=== PATIENT | female | born 1975 | race Caucasian/White ===

== ENCOUNTER 2019-10-13 09:29 | Outpatient (CLI) | payer BC, SELFPAY ==
--- NOTE | ~2019-10-13 | MM_ITS ---
EXAMINATION: MM screening malinda BI w vladislav HISTORY: Screening mammogram TECHNIQUE: Craniocaudal and mediolateral oblique 3-D tomosynthesis images were obtained and synthetic 2-D images were generated. CAD analysis was submitted and interpreted. COMPARISON: 08/04/2018 bilateral digital screening mammogram BREAST PARENCHYMAL COMPOSITION: There are scattered areas of fibroglandular density. FINDINGS: There is no evidence of suspicious mass, calcification, or architectural distortion to sugg est malignancy in either breast. There has been no suspicious interval change. IMPRESSION: 1. No mammographic evidence of malignancy. 2. Recommend routine screening mammography in one year. BI-RADS Category 1: Negative Reviewed, dictated and finalized at location A.
== END 2019-10-13 09:30 | disposition home or self-care (01) ==
LOC: ANHIMG 09:32
PROVIDERS: PCP Internal Medicine; Visit Provider Internal Medicine
DX: Z12.31 Encounter for screening mammogram for malignant neoplasm of breast (principal)
CPT/HCPCS: 77063; 77067

== ENCOUNTER 2021-05-07 08:07 | Outpatient (CLI) | payer BC, SELFPAY ==
--- NOTE | ~2021-05-07 | MM_ITS ---
EXAMINATION: MM screening malinda BI w vladislav HISTORY: Screening mammogram TECHNIQUE: Craniocaudal and mediolateral oblique 3-D tomosynthesis images were obtained and synthetic 2-D images were generated. CAD analysis was submitted and interpreted. COMPARISON: 10/13/2019, 08/04/2018 BREAST PARENCHYMAL COMPOSITION: There are scattered areas of fibroglandular density. FINDINGS: RIGHT BREAST: A mass is present in the anterior third of the lower inner breast 4.8 cm from the nippl e. LEFT BREAST: There is no evidence of suspicious mass, calcification, or architectural distortion to s uggest malignancy. There has been no significant interval change. IMPRESSION: 1. Right breast mass. 2. Additional mammographic views and possible breast ultrasound are recommended. BI-RADS Category 0: Incomplete: Needs additional imaging evaluation. Reviewed, dictated and finalized at location A. MACHINE OPERATOR IMPRESSION: 1. Right breast mass. 2. Additional mammographic views and possible breast ultrasound are recommended . BI-RADS Category 0: Incomplete: Needs additional imaging evaluation.
== END 2021-05-07 08:08 | disposition home or self-care (01) ==
LOC: ANHIMG 08:10
PROVIDERS: PCP Internal Medicine; Visit Provider Advanced Practice Midwife
DX: Z12.31 Encounter for screening mammogram for malignant neoplasm of breast (principal); R92.8 Other abnormal and inconclusive findings on diagnostic imaging of breast
CPT/HCPCS: 77063; 77067

== ENCOUNTER 2021-05-26 13:49 | Outpatient (CLI) | payer BC, SELFPAY ==
--- NOTE | ~2021-05-26 | MMUS_ITS ---
EXAMINATION: MM diagnostic malinda RT w vladislav, US breast RT limited HISTORY: Right breast mass on screening mammogram TECHNIQUE: Additional 3-D tomosynthesis images of the right breast were performed and synthetic 2-D i mages were generated. CAD analysis was submitted and interpreted. High resolution limited right breas t ultrasound was performed. COMPARISON: 05/07/2021, 10/13/2019, 08/04/2018 FINDINGS: MAMMOGRAPHIC FINDINGS: There is an 11 mm x 8 mm irregular mass with obscured margins in the middle third of the inner breast at the 3:00 location 5 cm from the nipple. No suspicious calcification or architectural distortion a re identified. ULTRASOUND: There is an 11 mm by 8mm, circumscribed, parallel, hypoechoic mass with posterior acoustic enhancemen t and no internal vascularity at the 4:00 location 4 cm from the nipple. IMPRESSION: 1. Indeterminate right breast mass. 2. Ultrasound-guided biopsy is recommended. BI-RADS category 4, suspicious findings. Reviewed, dictated and finalized at location A. L GAUGER IMPRESSION: 1. Indeterminate right breast mass. 2. Ultrasound-guided biopsy is recommended. BI-RADS category 4, suspicious findings.
== END 2021-05-26 13:50 | disposition home or self-care (01) ==
LOC: ANHIMG 13:51
PROVIDERS: PCP Internal Medicine; Visit Provider Advanced Practice Midwife
DX: R92.8 Other abnormal and inconclusive findings on diagnostic imaging of breast (principal)
CPT/HCPCS: 76642; 77061; 77065; G0279

== ENCOUNTER 2022-07-17 08:16 | Emergency (ER) | payer BC, SELFPAY ==
[2022-07-17 08:28] VITALS: BP 156/92; PULSE 83; RESP 16; TEMP 37; O2SAT 100
--- NOTE | 2022-07-17 09:06 | ED.URI ---
HPI - URI/Sore Throat General Chief Complaint: Upper Respiratory Infection Stated Complaint: cold symptoms Time Seen by Provider: 07/17/22 08:45 Source: patient, RN notes reviewed and old records reviewed Mode of arrival: ambulatory Limitations: no limitations History of Present Illness HPI Narrative: 47 year old female who presents to [facility] with complaints of battling allergy symptoms for one week duration. Patient reports that she has season allergies and uses antihistamines daily and has used Flonase in the past. Patient reports that she is traveling out of state to take care of grandmother and wants to make sure she doesn't have anything else going on. Patient reports that her drainage has recently turned to greenish tinged, had been clear, denies any fevers, chills or sweats, denies any cough or any sore throat or ear pain or any headache pain. Patient reports some sinus pressure.. MD elicited complaint: rhinorrhea, nasal congestion and sinus pain Pertinent past history: sinusitis and seasonal allergies Onset (ago): week(s) (1) Pain scale (0-10): 3 Able to tolerate fluids by mouth: Yes Treatments prior to arrival[facility] Related Data Home Medications Medication Instructions Recorded Confirmed bupropion HCl 150 mg 24 hr tablet, 150 mg PO DAILY 07/17/22 07/17/22 extended release lamotrigine 150 mg tablet 150 mg PO DAILY 07/17/22 07/17/22 methylphenidate HCl 36 mg 36 mg PO DAILY 07/17/22 07/17/22 tablet,extended release 24 hr sertraline 100 mg tablet 100 mg PO DAILY 07/17/22 07/17/22 trazodone 50 mg tablet 50 mg PO DAILY 07/17/22 07/17/22 Allergies Allergy/AdvReac Type Severity Reaction Status Date / Time poison alexander extract Allergy Unknown Rash Verified 07/17/22 08:34 Review of Systems Review of Systems: CONSTITUTIONAL: Denies malaise, chills, sweats, or fever. EYES: Denies visual changes, redness, or discharge. ENT: Reports rhinorrhea, congestion, sinus pain, no otalgia and no sore throat. CARDIOVASCULAR: Denies chest pain, palpitations, or edema. RESPIRATORY: Reports no cough.? Denies dyspnea. GASTROINTESTINAL: Denies abdominal pain, nausea, vomiting, diarrhea SKIN: Denies rash or itching. MUSCULOSKELETAL: Denies myalgia. NEUROLOGIC: Denies headache. All systems reviewed & are unremarkable except as noted in HPI and below PMFSH Past Medical History Medical History (Updated 07/18/22 @ 15:21 by Brenda Gooden NP) ADHD (attention deficit hyperactivity disorder) Anxiety and depression Bipolar 1 disorder, mixed Hypertension Social History Social History Smoking status: Never smoker Alcohol intake: current Alcohol use details: rare Substance use type: does not use Living arrangements: with family Gender identity (if verbalized by the patient): Female Comments At time of signature, agree with nursing past medical, surgical, social and family history. There is no relevant family history pertinent to the presenting complaint Exam Narrative: GENERAL: Well-appearing, well-nourished, and in no acute distress. HEAD: Normocephalic EYES: PERRLA, conjunctivae clear ENT: Nares clear, turbinates edematous and erythematous, clear to light yellow discharge noted. Mucous membranes moist. TM pearly lopez with dull light reflex bilaterally; no tragal tenderness. Oropharynx erythematous without lesions. Tonsils not enlarged and without exudate, no drooling, no hoarseness, no trismus, uvula midline.post nasal drainage noted NECK: Supple. No lymphadenopathy CHEST: Clear to auscultation, breath sounds equal. No wheezing, rhonchi, rales, or stridor. No respiratory distress, speaks in full sentences.no cough noted SAO2 100% on room air HEART: Regular rate and rhythm. No murmur heard. SKIN: Warm, dry, no rash. NEURO: Alert and oriented x3. PSYCH: Normal mood and affect Course Course Emergency Course:
== END 2022-07-17 09:16 | disposition home or self-care (01) ==
PROVIDERS: Emergency Provider Registered Nurse; PCP Internal Medicine
DX: J06.9 Acute upper respiratory infection, unspecified (principal); I10 Essential (primary) hypertension; F90.9 Attention-deficit hyperactivity disorder, unspecified type; F41.9 Anxiety disorder, unspecified; F31.9 Bipolar disorder, unspecified
CPT/HCPCS: 99213; G0463

== ENCOUNTER 2025-02-01 08:30 | Emergency (ER) | payer BC, SELFPAY ==
--- OUTSIDE RECORDS SUMMARY | 2018-08-03 23:00 | XMS_ITS | Encounter Summary ---
Author Organization [facility] Healthcare Address [address] [place] [address] Care Team Providers Care Rock Mason Name Role Phone Bryan Mix MD Primary Care Provider [phone] Reason for Visit * Diagnostic Imaging (Routine) - Closed Specialty Diagnoses / Procedures Referred By Dorothy blum Referred To Contact Procedures Breast Imaging Screening Outside Reference Dorota Shafer MD PhD Phone: tel: fax: Referral ID Status Reason Start Date Expiration Date Visits Re quested Visits Authorized [id number] Closed 06/13/2021 07/13/2022 1 1 Encounter Details Date Type Department Care Team (Late st Contact Info) Description 08/04/2018 Hospital Encounter [facility] [address] [place] [id number] Social History Tobacco Use Types Packs/Day Years Used Date Smoking Tobacco: Never Smokeless Tobacco: Never AUDIT-C Answer Date Recorded Q1: How often do you have a drink containing alc ohol? Monthly or less 07/20/2024 Q2: How many drinks containi ng alcohol do you have on a typical day when you are drinking? 1 or 2 07/20/2024 Q3: How often do you have si x or more drinks on one occasion? Less than monthly 07/20/2024 Personal Safety Answer Date Recorded Have you ever been in or are you currently in a harmful physical or emotional relationship or is someone making you feel afraid or unsafe? 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 Gender Identity Not on file Sexual Orientation Not on file documented as of this encounter Functional Status * Difference in Last Two Chepe Scores Answer Date of Assessment Author 1 06/19/2024 7:50 AM CDT Rhiannon Martinez RN * Question Answer Date of Assessment Author Auto Low/High - if selected proceed to interventions (retired) Low risk-patient immobile/non-ambula tory or infant 08/20/2021 12:54 PM CDT Memo Alcazar RN Patel Fall Risk Score (Score >= 45 places fall precaution order) 20 09/14/2024 12:00 PM CDT Daphnie Galo RN Prior Fall Event (Autopopulated from EMR) None found 09/14/2024 12:00 PM CDT Daphnie Galo RN * BP Location Answer Date of Assessment Author Right arm 07/21/2024 11:57 AM CDT Tammy Arnold MA * Question Answer Date of Assessment Author BP Method Automatic 06/19/2024 3:08 PM DIYAT Elmira Bird MAP (mmHg) 77 06/19/2024 3:08 PM CDT Elmira Bird * Fall Risk Interventions Question Answer Date of Assessment Author All Low Fall Interventions Applied Yes 06/19/2024 7:50 AM CDT Rhiannon Martinez RN All Moderate Fall Interventions Applied No 06/19/2024 7:50 AM CDT Rhiannon Martinez RN All Moderate Fall Risk Interventions EXCEPT: Fall risk sign with education 06/18/2024 2:00 PM CDT Shanika Patel RN All High Fall Risk Interventions Applied No 06/18/2024 8:00 PM CDT Jemima Sibley RN All High Risk Interventions EXCEPT: Bed alarm;Chair alarm;Fall risk sign with education 06/18/2024 8:00 PM DIYAT Jemima Sibley, BREANA Reason For Exception(s) Pt A&O x4, aware of abilties and limitations, BMAT green 06/18/2024 8:00 PM CDT Jemima Sibley RN * B.M.A.T. - Bedside Mobility Assessment Tool for Nurses Question Answer Date of Assessment Author Is patient able to participate in the BMAT? Yes 06/19/2024 7:50 AM CDT Teo Martinez RN BMAT Level Level 4 - Green 06/19/2024 7:50 AM CDT Rhiannon Medley, BREANA * Question Answer Date of Assessment Author 1. Has the patient self-repo rted, presented with clinical signs of, or have a documented history of any of the following within the past 30 days? No 06/18/2024 2:00 PM CDT Shanika Patel RN * Question Answer Date of Assessment Author Is the patient being treated today because it is known or suspected that they prepared, started, or tried to end their life? No 06/18/2024 2:00 PM DIYAT Shanika Patel RN * Question Answer Date of Assessment Author 1. In the past month, have y ou wished you were or that you could go to sleep and not wake up? No 06/18/2024 2:00 PM Shanika Ortiz RN 2. In the past month, have y ou actually had any thoughts of killing yourself? No 06/18/2024 2:00 PM DIYAT Shanika Patel RN 6. Have you ever done anythi ng, started to do anything, or prepared to do anything to end your life? No 06/18/2024 2:00 PM Shanika Ortiz RN * Suicide Risk Level Answer Date of Assessment Author No risk level 06/18/2024 2:00 PM DIYAT Haley Patel RN * Self-Injurious Risk Level Answer Date of Assessment Author No risk level 06/18/2024 2:00 PM DIYAT Haley Patel RN * Alcohol Withdrawal BP Hierarchy Answer Date of Assessment Author 83 02/19/2023 5:10 PM Felicita Delarosa RN * Pressure Injury Prevention Question Answer Date of Assessment Author Pressure Ulcer Prevention Interventions Keep skin clean and dry (Sensory Perception/Moisture ) 06/19/2024 7:50 AM DIYAT Rhiannon Martinez, BREANA Special Mattress Gel overlay 06/18/2024 8:00 PM CDT Jemima Glass RN * Transdermal Patch Admission Assessment Question Answer Date of Assessment Author Transdermal Patch Assessment on Admission Not Present 06/18/2024 2:00 PM DIYAT Shanika Patel RN * AUDIT-C Score Answer Date of Assessment Author 3 06/18/2024 2:14 PM DIYAT Haley Patel RN * Alcohol Use Question Answer Date of Assessment Author Q1: How often do you have a drink containing alcohol? Monthly or less 07/20/2024 2:41 PM DIYAT Ruddy Olivier RN Q2: How many drinks containing alcohol do you have on a typical day when you are drinking? 1 or 2 06/18/2024 2:14 PM DIYAT Shanika Patel , BREANA Q3: How often do you have six or more drinks on one occasion? Less than monthly 06/18/2024 2:14 PM Shanika Ortiz RN * Fall Risk Assessment Tool - MEDFRAT Question Answer Date of Assessment Author Prior Fall Event (Autopopulated from EMR) None found 06/18/2024 9:26 AM Sheridan Yap RN Pt needs supervision/assistance with ambulation? (makes patient High risk) No 06/18/2024 9:26 AM Sheridan Yap RN History of falling in last 3 months, including since admission 0 06/18/2024 9:26 AM Sheridan Yap RN Confusion or disorientation 0 06/18/2024 9:26 AM Sheridan Yap RN Intoxicated or sedated 0 9:26 AM Sheridan Yap RN Impaired gait 0 06/18/2024 9:26 AM Sheridan Yap RN Mobility assist device used 0 06/18/2024 9:26 AM Sheridan Yap RN Altered elimination 0 06/18/2024 9 :26 AM Sheridan Yap RN Fall risk score: (1-2 low risk), (3-4 moderate risk), (5 or more high risk) 0 06/18/2024 9:26 AM CDT Sheridan Valle, BREANA Interventions - GENERAL USE as needed patient/family education 02/19/2023 5:11 PM MARKETING OPERATIONS ANALYST Felicita Arenas RN * Integumentary Question Answer Date of Assessment Author Integumentary (WDL) WDL 06/19/2024 7:50 AM CD T Rhiannon Martinez, BREANA * Chepe Scale Question Answer Date of Assessment Author Chepe Scale Used Chepe 08/20/2021 7:53 AM CDT Linda Purcell RN * Question Answer Date of Assessment Author Percent Meal Eaten (%) 50 06/19/2024 12:42 P M CDT Elmira Zapata * BP Location Answer Date of Assessment Author Right arm 07/21/2024 11:57 AM CDT Tammy Arnold MA * Question Answer Date of Assessment Author BP Method Automatic 06/19/2024 3:08 PM CDT Elmira Bird * Fall Risk Interventions Question Answer Date of Assessment Author All Low Fall Interventions Applied Yes 06/19/2024 7:50 AM Rhiannon Sotelo RN All Moderate Fall Interventions Applied No 06/19/2024 7:50 AM CDT Rhiannon Martinez RN All Moderate Fall Risk Interventions EXCEPT: Fall risk sign with education 06/18/2024 2:00 PM CDT Shanika Patel RN All High Fall Risk Interventions Applied No 06/18/2024 8:00 PM DIYAT Jemima Sibley RN All High Risk Interventions EXCEPT: Bed alarm;Chair alarm;Fall risk sign with education 06/18/2024 8:00 PM DIYAT Jemima Sibley, BREANA Reason For Exception(s) Pt A&O x4, aware of abilties and limitations, BMAT green 06/18/2024 8:00 PM CDT Jemima Sibley, BREANA * ADL Screening Question Answer Date of Assessment Author Patient's Vision Adequate to Safely Complete Daily Activities Yes 06/18/2024 2:00 PM DIYAT Shanika Patel RN Patient's Judgement Adequate to Safely Complete Daily Activities Yes 06/18/2024 2:00 PM DIYAT Shanika Patel RN Patient's Memory Adequate to Safely Complete Daily Activities Yes 06/18/2024 2:00 PM Shanika Ortiz RN Patient Able to Express Needs/Desires Yes 06/18/2024 2:00 PM Shanika Ortiz RN Dressing Independent 06/18/2024 2:00 PM DIYAT Shanika Patel RN Grooming Independent 06/18/2024 2:00 PM Shanika Ortiz RN Feeding Independent 06/18/2024 2:00 PM CDShanika Cuellar RN Bathing Independent 06/18/2024 2:00 PM DIYAT Shanika Patel RN Toileting Independent 06/18/2024 2:00 PM Shanika Ortiz RN In/Out Bed Independent 06/18/2024 2:00 PM Shanika Ortiz RN Walks in Home Independent 06/18/2024 2:00 PM DIYAT Shanika Patel RN Weakness of Legs None 06/18/2024 2:00 PM CDT Shanika Johnson RN Weakness of Arms/Hands None 06/18/2024 2:00 PM CDT Shanika Patel RN Hearing - Right Ear Functional 06/18/2024 2:00 PM CD Shanika Cuellar RN Hearing - Left Ear Functional 06/18/2024 2:00 PM Shanika Ortiz RN Dominant hand? Right 06/18/2024 2:00 PM DIYAT Shanika Pandey RN Decline in ADLs in last 2 weeks? No 06/18/2024 2:00 PM CDShanika Cuellar RN * Therapy Consults Question Answer Date of Assessment Author PT Evaluation Needed 2 06/18/2024 2:00 PM Shanika Olivera RN OT Evaluation Needed 2 06/18/2024 2:00 PM Shanika Olivera RN PIPE MAKER Evaluation Needed 2 06/18/2024 2:00 PM Shanika Ortiz RN * Assistive Devices Question Answer Date of Assessment Author Assistive Devices/DME None 06/18/2024 2:00 PM Shanika Ortiz RN * Speech/Swallow Screening Question Answer Date of Assessment Author Currently, does patient have difficulty swallowing; coughing/choking while swallowing, or feels like food is sticking No 06/18/2024 2:00 PM DIYAT Shanika Patel RN In the past two weeks has the patient had changes in speaking or ability to comprehend conversation No 06/18/2024 2:00 PM DIYAT Shanika Patel RN Currently, does patient require thickened liquids or dysphagia diet No 06/18/2024 2:00 PM DIYAT Shanika Patel RN Patient is in need of PIPE MAKER Order: No PIPE MAKER order needed from this assessment 06/18/2024 2:00 PM CDT Shanika Patel RN * Hygiene Question Answer Date of Assessment Author Reason not bathed/showered Patient/family refused bath/shower 06/19/2024 6:00 PM CDT Rhiannon Martinez RN Bath Not bathed/showered 06/19/2024 6:00 PM CD T Rhiannon Martinez RN documented as of this encounter Mental Status * Question Answer Entry Date Author Neuro (WDL) WDL 06/19/2024 7:50 AM CDT Rhiannon Palmer RN documented in this encounter Plan of Treatment Not on file documented as of this encounter Procedures Procedure Name Priority Date/Time Associated Diagnosis Comments BREAST IMAGING MG SCREENING OUTSIDE REFERENCE Routine 08/04/2018 12:00 AM CDT documented in this encounter Results * Breast Imaging Screening Outside Reference (08/04/2018 12:00 AM CDT) Impressions [facility] - 06/13/2021 11:30 AM CDT These images are for Reference purposes only and have not been reviewed by [facility]iology. There will be no report generated by a [facility] Radiologist. Narrative [facility] - 06/13/2021 11:30 AM CDT EXAMINATION: Images For Reference Purposes Only us Dorota Shafer MD PhD IMG MAMMO PROCEDURES Final Result [facility] documented in this encounter Visit Diagnoses Not on filedocumented in this encounter Care Teams Rock Mason Relationship Specialty Start Date End Date Bryan Mix MD [address] [place] [address] PCP - General 05/25/16 2 documented as of this encounter
--- OUTSIDE RECORDS SUMMARY | 2019-10-12 23:00 | XMS_ITS | Encounter Summary ---
Author Organization [facility] Healthcare Address [address] [place] [address] Care Team Providers Care Kettle Tender Name Role Phone Bryan Mix MD Primary Care Provider [phone] Reason for Visit * Diagnostic Imaging (Routine) - Closed Specialty Diagnoses / Procedures Referred By Dorothy blum Referred To Contact Procedures Breast Imaging Screening Outside Reference Dorota Shafer MD PhD Phone: tel: fax: Referral ID Status Reason Start Date Expiration Date Visits Re quested Visits Authorized [id number] Closed 06/13/2021 07/13/2022 1 1 Encounter Details Date Type Department Care Team (Late st Contact Info) Description 10/13/2019 Hospital Encounter [facility] [address] [place] [id number] Social History Tobacco Use Types Packs/Day Years [...] on file Legal 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 No 06/18/2024 2:00 PM Shanika Ortiz RN 6. Have you ever done anythi ng, started to do anything, or prepared to do anything to end your life? No 06/18/2024 2:00 PM Shanika Ortiz RN * Suicide Risk Level Answer Date of Assessment Author No risk level 06/18/2024 2:00 PM Haley Ortiz RN * Self-Injurious Risk Level Answer Date of Assessment Author No risk level 06/18/2024 2:00 PM Haley Ortiz RN * Alcohol Withdrawal BP Hierarchy Answer [...] of Assessment Author 3 06/18/2024 2:14 PM CDT Haley Patel RN * Alcohol Use Question [...] as needed patient/family education 02/19/2023 5:11 PM RAG WASHER Felicita Arenas RN * Integumentary Question Answer [...] Automatic 06/19/2024 3:08 PM DIYAT Elmira Bird * Fall Risk Interventions Question Answer Date of Assessment Author All Low Fall Interventions Applied Yes 06/19/2024 7:50 AM DIYAT Rhiannon Martinez RN All Moderate Fall Interventions Applied No 06/19/2024 7:50 AM CDT Rhiannon Martinez RN All Moderate Fall Risk Interventions EXCEPT: Fall risk sign with education 06/18/2024 2:00 PM CDT Shanika Patel RN All High Fall Risk Interventions Applied No 06/18/2024 8:00 PM DIYAT Jemima Sibley RN All High Risk Interventions EXCEPT: Bed alarm;Chair alarm;Fall risk sign with education 06/18/2024 8:00 PM CDT Jemima Sibley, BREANA Reason For Exception(s) Pt [...] Dressing Independent 06/18/2024 2:00 PM DIYAT Shanika Patle RN Grooming Independent 06/18/2024 2:00 PM Shanika Ortiz RN Feeding Independent 06/18/2024 2:00 PM CDShanika Cuellar RN Bathing Independent 06/18/2024 2:00 PM DIYAT Shanika Patel RN Toileting Independent 06/18/2024 2:00 PM DIYAT Shanika Patel RN In/Out Bed Independent 06/18/2024 2:00 PM Shanika Ortiz RN Walks in Home Independent 06/18/2024 2:00 PM DIYAT Shanika Patel RN Weakness of Legs None 06/18/2024 2:00 PM CDT Shanika Johnson RN Weakness of Arms/Hands None 06/18/2024 2:00 PM DIYAT Shanika Patel RN Hearing - Right Ear [...] 2 06/18/2024 2:00 PM Shanika Olivera RN CROZER Evaluation Needed 2 06/18/2024 2:00 PM Shanika [...] Patel RN Patient is in need of CROZER Order: No CROZER order needed from this assessment 06/18/2024 2:00 [...] BREAST IMAGING MG SCREENING OUTSIDE REFERENCE Routine 10/13/2019 12:00 AM CDT documented in this encounter Results * Breast Imaging Screening Outside Reference (10/13/2019 12:00 AM CDT) Impressions [facility] - 06/13/2021 11:30 AM CDT These images are for Reference purposes only and have not been reviewed by [facility] Radiology. There will be no report generated by a [facility] Radiologist. Narrative [facility] - 06/13/2021 11:30 AM CDT EXAMINATION: Images For Reference Purposes Only us Dorota Shafer MD PhD IMG MAMMO PROCEDURES Final Result [facility] documented in this encounter Visit Diagnoses Not on filedocumented in this encounter Care Teams Kettle Tender Relationship Specialty Start Date End Date Bryan Mix MD [address] [place] [address] PCP - General 05/25/16 05/18/21 documented as of this encounter
--- OUTSIDE RECORDS SUMMARY | 2025-01-22 03:00 | XMS_ITS ---
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 Name Role Phone Jose De La Paz MD Primary Care Provider Yovani Salazar Unavailable [phone] Allergies No Known Allergies REASON FOR VISIT 3 month f/u Medications Medication SIG (Take, Route, Frequency, Duration) Notes Start Date End Date Status Pantoprazole Sodium 40 MG Tablet Delayed Release Oral; Duration: 30 Days Not-Taking Pantoprazole Sodium 40 MG Tablet Delayed Release Oral; Duration: 30 Days Not-Taking Colesevelam HCl 625 mg TABLET ORAL 07/29/2023 Not-Taking Multivitamin Adults Tablet Oral 07/29/2023 Active ZyrTEC *Reorder from [employer] for eRx and Interaction Alerts* 07/29/2023 Active buPROPion HCl ER (XL) 150 MG Tablet Extended Release 24 Hour TAKE 1 TABLET EVERY DAY BY ORAL ROUTE FOR 90 DAYS.; Duration: 90 Not-Taking Methylphenidate HCl ER 36 MG Tablet Extended Release 1 tablet every morning Oral once a day; Duration: 30 days 03/09/2024 Not-Taking Sertraline HCl 100 MG Tablet TAKE ONE TABLET BY MOUTH EVERY DAY; Duration: 90 Not-Taking Methylphenidate HCl ER 36 MG Tablet Extended Release 1 tablet every morning Oral once a day 01/09/2025 Active Cholestyramine 4 GM Packet Oral; Duration: 30 Days Active Sertraline HCl 100 MG Tablet 1 tablet Oral Once a day; Duration: 90 days 01/22/2025 Active buPROPion HCl ER (XL) 150 MG Tablet Extended Release 24 Hour 1 tablet every morning Oral Once a day; Duration: 90 days 01/22/2025 Active lamoTRIgine 25 MG Tablet 2 tablets Oral Once a day; Duration: 90 days see change 01/22/2025 Active Social History Tobacco Use: Social History Observation Description Date Details (start date - stop date) Never Smoker NA - NA Sex Assigned At : Social History Observation Description Sex Assigned At Female Social History Tobacco Use: Social Info Question Answer Notes Tobacco Control (Standard) Tobacco use: Nonsmoker Additional Details Category Social Info Options Details Migrated Social History Migrated Social History Alcohol Intake: Occasional 06/26/2020,Tobacco Years: Never smoker 06/26/2020 Vital Signs Blood pressure systolic 117 mm Hg 01/23/20 25 Blood pressure diastolic 77 mm Hg 025 Heart Rate 67 /min 01/22/2025 Height 64.00 in 01/22/2025 Weight 175 lbs 01/22/2025 BMI 30.04 kg/m2 01/22/2025 Height-cm 162.56 cm 01/22/2025 Weight-kg 79.38 kg 01/22/2025 Encounters Encounter Location Date Provider Diagnosis [facility] [address] [address] 01/22/2025 Yovanimartín Boatengoza Generalized anxiety disorder F41.1 ; Attention-deficit hyperactivity disorder, combined type F90.2 ; Major depressive disorder, recurrent, mild F33.0 and 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 Jose Herrera at [facility] for unspecified chest pain. This was followed by an orders-only visit with Heaven Benavidez on 06/19/2024. A telephone consultation with Nita Marquez occurred on 06/20/2024, and a post-discharge follow-up call was made by Yesenia Herrera on 06/22/2024. An office visit on 07/21/2024 with Reyna Figuerao NP addressed unspecified chest pain, leading to a hospital encounter and surgery on 07/24/[address] Kiara Beltrán, accompanied by an anesthesia event with Dr. Fermin Martinez. A telephone consultation on 07/27/2024 with James Miller MA was for a screening colonoscopy, followed by a results follow-up on 08/01/[address] Kiara Beltrán. On 09/14/2024, the patient underwent surgery for a screening colonoscopy with Dr. Kiara Beltrán, including an anesthesia event with Dr. Fermin Martinez, and a hospital encounter. A results follow-up occurred on 09/18/[address] Kiara Beltrán. On 10/02/2024, the patient had a hospital encounter for a screening mammogram. 01/22/2025 Attention-deficit hyperactivity disorder, combined type (ICD-10 - F90.2) Imported from [facility]: On 06/18/2024, the patient had a hospital encounter with Dr. Jose Herrera at [facility] for unspecified chest pain. This was followed by an orders-only visit with Heaven Benavidez on 06/19/2024. A telephone consultation with Nita Marquez occurred on 06/20/2024, and a post-discharge follow-up call was made by Yesenia Herrera on 06/22/2024. An office visit on 07/21/2024 with Reyna Figueroa NP addressed unspecified chest pain, leading to a hospital encounter and surgery on 07/24/[address] Kiara Beltrán, accompanied by an anesthesia event with Dr. Fermni Martinez. A telephone consultation on 07/27/2024 with James Miller MA was for a screening colonoscopy, followed by a results follow-up on 08/01/[address] Kiara Beltrán. On 09/14/2024, the patient underwent surgery for a screening colonoscopy with Dr. Kiara Beltrán, including an anesthesia event with Dr. Fermin Martinez, and a hospital encounter. A results follow-up occurred on 09/18/[address] Kiara Beltrán. On 10/02/2024, the patient had a hospital encounter for a screening mammogram. 01/22/2025 Major depressive disorder, recurrent, mild (ICD-10 - F33.0) Imported from [facility]: On 06/18/2024, the patient had a hospital encounter with Dr. Jose Herrera at [facility] for unspecified chest pain. This was followed by an orders-only visit with Heaven Benavidez on 06/19/2024. A telephone consultation with Nita Marquez occurred on 06/20/2024, and a post-discharge follow-up call was made by Yesenia Herrera on 06/22/2024. An office visit on 07/21/2024 with Reyna Figueroa NP addressed unspecified chest pain, leading to a hospital encounter and surgery on 07/24/[address] Kiara Beltrán, accompanied by an anesthesia event with Dr. Fermin Martinez. A telephone consultation on 07/27/2024 with James Miller MA was for a screening colonoscopy, followed by a results follow-up on 08/01/[address] Kiara Beltrán. On 09/14/2024, the patient underwent surgery for a screening colonoscopy with Dr. Kiara Beltrán, including an anesthesia event with Dr. Fermin Martinez, and a hospital encounter. A results follow-up occurred on 09/18/[address] Kiara Beltrán. On 10/02/2024, the patient had a hospital encounter for a screening mammogram. 01/22/2025 Insomnia due to other mental disorder (ICD-10 - F51.05) Imported from [facility]: On 06/18/2024, the patient had a hospital encounter with Dr. Jose Herrera at [facility] for unspecified chest pain. This was followed by an orders-only visit with Heaven Benavidez on 06/19/2024. A telephone consultation with Nita Marquez occurred on 06/20/2024, and a post-discharge follow-up call was made by Yesenia Herrera on 06/22/2024. An office visit on 07/21/2024 with Reyna Figueroa NP addressed unspecified chest pain, leading to a hospital encounter and surgery on 07/24/[address] Kiara Beltrán, accompanied by an anesthesia event with Dr. Fermin Martinez. A telephone consultation on 07/27/2024 with James Miller MA was for a screening colonoscopy, followed by a results follow-up on 08/01/[address] Kiara Beltrán. On 09/14/2024, the patient underwent surgery for a screening colonoscopy with Dr. Kiara Beltrán, including an anesthesia event with Dr. Fermin Martinez, and a hospital encounter. A results follow-up occurred on 09/18/[address] Kiara Beltrán. On 10/02/2024, the patient had a hospital encounter for a screening mammogram. Plan Of Treatment Medication Medication Name Sig Start Date Stop Date Notes Methylphenidate HCl ER 36 MG Tablet Extended Release 1 tablet every morning Oral once a day 01/09/2025 Sertraline HCl 100 MG Tablet 1 tablet Or al Once a day; Duration: 90 days 01/22/2025 buPROPion HCl ER (XL) 150 MG Tablet Extended Release 24 Hour 1 tablet every morning Oral Once a day; Duration: 90 days 01/22/2025 lamoTRIgine 25 MG Tablet 2 tablets Oral Once a day; Duration: 90 days 01/22/2025 see change Next Appt Details Follow Up: 4 Weeks, Reason: f/u cognitive concerns Provider Name:Yovani waters, 02/21/2025 09:00:00 AM, [address], [facility], [place], [address], History and Physical Notes * HPI (History of Present Illness) Category Sub-Category Detail Notes Category Not es History of Presenting Problem Anxiety stable Depression screening done Depression stable Sleep disturbance doesn't usually slee p well. Has sleep apnea, does not like using CPAP. Wake up tired. ADHD on concerta 36mg, mi nd is still always going. Has been reading a lot, that is better. Used to always have to be moving. Depression screening PHQ-9 Little inte rest or pleasure in doing things: Not at all Feeling down, depressed, or hopeless: No t at all Trouble falling or staying asleep, or sl eeping too much: Not at all Feeling tired or having little energy: N ot at all Poor appetite or overeating: Not at all Feeling bad about yourself o r that you are a failure, or have let yourself or your family down: Not at all Trouble concentrating on thi ngs, such as reading the newspaper or watching television: Several days Moving or speaking so slowly that other people could have noticed; or the opposite, being so fidgety or restless that you have been moving around a lot more than usual: Not at all Thoughts that you would be b sterling off or of hurting yourself in some way: Not at all Total Score: 1 Interpretation: Minimal Depression Intervention Depression Screening Findings: N egative Follow-Up for Depression: Psychiatric fo llow-up Suicide Risk Assessment Performed: --golden e Depression Screening JAZZMINE-7 (2018 Edition) Feelin g nervous, anxious, or on edge: Not at all Not being able to stop or control worryi ng: Not at all Worrying too much about different things : Several days Trouble relaxing: Not at all Being so restless that it is hard to sit still: Not at all Becoming easily annoyed or irritable: No t at all Feeling afraid as if something awful alex ht happen: Not at all Total JAZZMINE-7 Score: 1 If you checked any problems, how difficult have they made it for you to do your work, take care of things at home, or get along with other people?: Not difficult at all Interpretation of Total: (0 to 4) No Anx iety [place]-Suicide Severity Rating Scale Suicide Risk (CSRS-screener) in the past one month Have you wished you were or wished you could go to sleep and not wake up?: No in the past one month Have y ou actually had any thoughts of killing yourself?: No Have you ever done anything, started to do anything, or prepared to do anything to end your life?: No Examination Category Sub-Category Detail Notes Category Not es Psychiatry Appearance: well-groomed, we ll-nourished, appears stated age Attitude: cooperative Abnormal body movements: none Attention: good Orientation: awake, alert and mello ented x 3 Affect / mood: appropriate, full ra nge Speech / language: appropriate pitch/mo dulation, clear and coherent, normal rate, volume, and articulation (RVR), proper grammar used Thought process: intact Thought content: appropriate Progress Notes * CHASITY MILLS CDOB:04/1974 (50 yo F)Acc No.[id number]:01/22/2025 Patient: Joselyn CHASITY TAMAYO Provider: JENNA DAVIS :1975 A ge:49 Y S ex:Female Date:01/22/2025 Address:[address], [id number] Pcp:Jose De La Paz MD Subjective: * Chief Complaints: * 3 month f/u * HPI: D epression Screening: JAZZMINE-7 (2018 Edition) F eeling nervous, anxious, or on edge N ot at all N ot being able to stop or control worrying?Not at all W orrying too much about different things S ever T rouble relaxing N ot at all B eing so restless that it is hard to sit still N ot at all B ecoming easily annoyed or irritable N ot at all F eeling afraid as if something awful might happen N ot at all T otal JAZZMINE-7 Score 1 I f you checked any problems, how difficult have they made it for you to do your work, take care of things at home, or get along with other people? N ot difficult at all I nterpretation of Total ( 0 to 4) No Anxiety [place]-Suicide Severity Rating Scale: Suicide Risk (CSRS-screener) i n the past one month Have you wished you were or wished you could go to sleep and not wake up? N o i n the past one month Have you actually had any thoughts of killing yourself? N o H ave you ever done anything, started to do anything, or prepared to do anything to end your life? N o D epression screening: PHQ-9 L ittle interest or pleasure in doing things?Not at all F eeling down, depressed, or hopeless N ot at all T rouble falling or staying asleep, or sleeping too much N ot at all F eeling tired or having little energy N ot at all P oor appetite or overeating N ot at all F eeling bad about yourself or that you are a failure, or have let yourself or your family down N ot at all T rouble concentrating on things, such as reading the newspaper or watching television S ever M oving or speaking so slowly that other people could have noticed; or the opposite, being so fidgety or restless that you have been moving around a lot more than usual N ot at all T houghts that you would be better off or of hurting yourself in some way N ot at all T otal Score 1 I nterpretation M inimal Depression Intervention D epression Screening Findings N egative F ollow-Up for Depression P sychiatric follow-up S uicide Risk Assessment Performed - -date H istory of Presenting Problem: Depression screening negativeBP normal. Depression s table. Anxiety s table. Sleep disturbance d oesn't usually sleep well. Has sleep apnea, does not like using CPAP. Wake up tired. ADHD o n concerta 36mg, mind is still always going. Has been reading a lot, that is better. Used to always have to be moving. . Depression screening done. 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 * Hospitalization/Major Diagno stic Procedure: Chest pains 05/2024 Hospitalization Verified. * Social History: T obacco Use: T obacco Control (Standard) T obacco use: N onsmoker M igrated Social History: M igrated Social History: Alcohol Intake: Occasional 06/26/2020,Tobacco Years: Never smoker 06/26/2020. S ocial History Verified. * Medications: T akingCholestyramine 4 GM Packet Oral Multivitamin Adults Tablet Oral ZyrTEC , Notes to Pharmacist: *Reorder from [facility] for eRx and Interaction Alerts*lamoTRIgine 100 MG Tablet 1 tablet Oral Once a day Sertraline HCl 100 MG Tablet 1 tablet Oral Once a day buPROPion HCl ER (XL) 150 MG Tablet Extended Release 24 Hour 1 tablet every morning Oral Once a day Methylphenidate HCl ER 36 MG Tablet Extended Release 1 tablet every morning Oral once a day , Notes: use [facility] for methylphenidate erTaking Cholestyramine 4 GM Packet Oral Taking Multivitamin Adults Tablet Oral Taking ZyrTEC , Notes to Pharmacist: *Reorder from [facility] for eRx and Interaction Alerts*Taking lamoTRIgine 100 MG Tablet 1 tablet Oral Once a day Taking Sertraline HCl 100 MG Tablet 1 tablet Oral Once a day Taking buPROPion HCl ER (XL) 150 MG Tablet Extended Release 24 Hour 1 tablet every morning Oral Once a day Taking Methylphenidate HCl ER 36 MG Tablet Extended Release 1 tablet every morning Oral once a day , Notes: use [facility] for methylphenidate erNot-TakingbuPROPion HCl ER (XL) 150 MG Tablet Extended Release 24 Hour TAKE 1 TABLET EVERY DAY BY ORAL ROUTE FOR 90 DAYS. Methylphenidate HCl ER 36 MG Tablet Extended Release 1 tablet every morning Oral once a day Sertraline HCl 100 MG Tablet TAKE ONE TABLET BY MOUTH EVERY DAY Pantoprazole Sodium 40 MG Tablet Delayed Release Oral Pantoprazole Sodium 40 MG Tablet Delayed Release Oral Colesevelam HCl 625 mg TABLET ORAL Medication List reviewed and reconciled with the patientNot- Taking buPROPion HCl ER (XL) 150 MG Tablet Extended Release 24 Hour TAKE 1 TABLET EVERY DAY BY ORAL ROUTE FOR 90 DAYS. Not-Taking Methylphenidate HCl ER 36 MG Tablet Extended Release 1 tablet every morning Oral once a day Not-Taking Sertraline HCl 100 MG Tablet TAKE ONE TABLET BY MOUTH EVERY DAY Not-Taking Pantoprazole Sodium 40 MG Tablet Delayed Release Oral Not-Taking Pantoprazole Sodium 40 MG Tablet Delayed Release Oral Not-Taking Colesevelam HCl 625 mg TABLET ORAL Medication List reviewed and reconciled with the patient * Allergies: N .K.D.A.yesAllergies Verified. Objective: * Vitals: B P:117/77mm Hg, HR:67/min, Wt:175lbs, Wt-k.38 kg, Ht: 64.00 in, Ht-cm: 162.56 cm, BMI:30.04Index, Body Surface Area: 1.89. * Examination: P sychiatry: Appearance: w ell-groomed, well-nourished, appears stated age. Abnormal body movements: n one. Affect / mood: a ppropriate, full range. Attention: g ood. Attitude: c ooperative. Orientation: a wake, alert and oriented x 3. Speech / language: a ppropriate pitch/modulation, clear and coherent, normal rate, volume, and articulation (RVR), proper grammar used. Thought content: a ppropriate. Thought process: i ntact. Assessment: * Assessment: 1. G eneralized anxiety disorder - F41.1 (Primary) 2 . A ttention-deficit hyperactivity disorder, combined type - F90.2 3 . M ajor depressive disorder, recurrent, mild - F33.0 4 . I nsomnia due to other mental disorder - F51.05 ? Imported from [facility]: On 06/18/2024, the patient had a hospital encounter with Dr. Jose Herrera at [facility] for unspecified chest pain. This was followed by an orders-only visit with Heaven Benavidez on 06/19/2024. A telephone consultation with Nita Marquez occurred on 06/20/2024, and a post-discharge follow-up call was made by Yesenia Herrera on 06/22/2024. An office visit on 07/21/2024 with Reyna Figueroa NP addressed unspecified chest pain, leading to a hospital encounter and surgery on 07/24/[address] Kiara Beltrán, accompanied by an anesthesia event with Dr. Fermin Martinez. A telephone consultation on 07/27/2024 with James Miller MA was for a screening colonoscopy, followed by a results follow-up on 08/01/[address] Kiara Beltrán. On 09/14/2024, the patient underwent surgery for a screening colonoscopy with Dr. Kiara Beltrán, including an anesthesia event with Dr. Fermin Martinez, and a hospital encounter. A results follow-up occurred on 09/18/[address] Kiara Beltrán. On 10/02/2024, the patient had a hospital encounter for a screening mammogram. Plan: * Treatment: 2. A ttention-deficit hyperactivity disorder, combined type Continue Methylphenidate HCl ER Tablet Extended Release, 36 MG, 1 tablet every morning, Oral, once a day, Notes: use [facility] er. 3. M ajor depressive disorder, recurrent, mild Start lamoTRIgine Tablet, 25 MG, 2 tablets, Oral, Once a day, 90 days, 180 Tablet, Refills 1, Notes to Pharmacist: see change; R efill buPROPion HCl ER (XL) Tablet Extended Release 24 Hour, 150 MG, 1 tablet every morning, Oral, Once a day, 90 days, 90 Tablet, Refills 1. * Procedure Codes: 9 6127 BEHAV ASSMT W/SCORE & DOCD/STAND [id number] TOBACCO NON-USER * Preventive Medicine: Screenings: D epression screening Have you had a recent depression screening? Y es * Follow Up: 4 Weeks (Reason: f/u cognitive concerns) Billing Information: * Visit Code: 77878 OFFICE OUTPATIENT VISIT 25 MINUTES DETAILED HISTORY AND EXAM/MODERATE MEDICAL DECISION MAKING. * Procedure Codes: 39054 BEHAV ASSMT W/SCORE & DOCD/STAND INSTRUMENT. 1036F TOBACCO NON-USER. * Electronic signature of JENNA Kennedy on 02/01/2025 at 05:17 PM DIRECT[employer] Sign off status: Pending * Provider: JENNA DAVIS Date: Generated for Oral Murray/Francisco on: 04/03/2024 05:17 PM [employer]OR [employer]
[2025-02-01 08:38] VITALS: BP 138/86; PULSE 77; RESP 22; TEMP 36.8; O2SAT 99
--- NOTE | 2025-02-01 08:58 | ED.URI ---
HPI - URI/Sore Throat General Chief Complaint: Upper Respiratory Infection Stated Complaint: head congestion/throat Time Seen by Provider: 02/01/25 08:50 Source: patient and RN notes reviewed Mode of arrival: ambulatory Limitations: no limitations History of Present Illness HPI Narrative: 50-year-old female presents today complaining of a 2 week history of nasal congestion, postnasal drip, sore throat, and mild dry cough. Denies fever or shortness of breath. She takes Zyrtec, DayQuil, and NyQuil with some mild relief and currently rates her pain 3/10. No history of asthma or COPD. She is a nonsmoker. Related Data Home Medications ?Medication ?Instructions ?Recorded ?Confirmed ?Last Taken ?Type bupropion HCl 150 mg 24 hr tablet, 150 mg PO DAILY 07/17/22 07/17/22 Unknown History extended release lamotrigine 150 mg tablet 150 mg PO DAILY 07/17/22 07/17/22 Unknown History methylphenidate HCl 36 mg 36 mg PO DAILY 07/17/22 07/17/22 Unknown History tablet,extended release 24 hr sertraline 100 mg tablet 100 mg PO DAILY 07/17/22 07/17/22 Unknown History trazodone 50 mg tablet 50 mg PO DAILY 07/17/22 07/17/22 Unknown History lamotrigine 25 mg tablet mg 02/01/25 Unknown History Allergies Allergy/AdvReac Type Severity Reaction Status Date / Time poison alexander extract Allergy Unknown Rash Verified 02/01/25 08:46 PMFSH Past Medical History Medical History ADHD (attention deficit hyperactivity disorder) Hypertension Bipolar 1 disorder, mixed Anxiety and depression Social History Social History Alcohol intake: current Alcohol use details: rare Substance use type: does not use Living arrangements: with family Gender identity (if verbalized by the patient): Female Comments At time of signature, I have reviewed and agree with nursing past medical, surgical, social and family history unless otherwise noted. Please see nursing chart for further information. There is no relevant family history pertinent to the presenting complaint Exam Narrative: GENERAL: Well-appearing, well-nourished, and in no acute distress. HEAD: Normocephalic, atraumatic. EYES: EOMI. No redness or drainage. Conjunctivae normal. ENT: Mucous membranes pink and moist. Nares congested. No rhinorrhea. TMs normal bilaterally. Throat mildly erythematous without edema or exudate. Uvula midline. NECK: Normal AROM. Supple. No lymphadenopathy. CHEST: No respiratory distress. Clear to auscultation. HEART: Regular rate and rhythm. No murmur appreciated. EXTREMITIES: Normal range of motion. No edema. SKIN: Warm, dry, no rash. Capillary refill normal. Normal skin turgor. NEURO: No focal deficits. Alert and oriented x3. Gait steady. PSYCH: Normal affect. No signs of depression or anxiety. Course Course Level of Care: Express Care Visit Vital Signs Vital signs: Vital Signs Temperature 98.3 F 02/01/25 08:38 Pulse Rate 77 02/01/25 08:38 Respiratory Rate 22 H 02/01/25 08:38 Blood Pressure 138/86 02/01/25 08:38 Pulse Oximetry 99 02/01/25 08:38 Oxygen Delivery Room Air 02/01/25 08:38 Temperature 98.3 F 02/01/25 08:38 Pulse Rate 77 02/01/25 08:38 Respiratory Rate 22 H 02/01/25 08:38 Blood Pressure 138/86 02/01/25 08:38 Pulse Oximetry 99 02/01/25 08:38 Oxygen Delivery Room Air 02/01/25 08:38 MDM - URI/Sore Throat MDM Narrative Medical decision making narrative: 50-year-old female presents today complaining of a 2 week history of nasal congestion, postnasal drip, sore throat, and mild dry cough. Denies fever or shortness of breath. She takes Zyrtec, DayQuil, and NyQuil with some mild relief and currently rates her pain 3/10. Upon exam, patient has some mild nasal congestion and erythematous throat. Rapid strep negative. Culture pending. Patient will be treated with Augmentin for bacterial sinusitis. She declines prescriptions for prednisone and Tessalon Perles. Vital signs stable. Recheck of respiratory rate during exam was 18. Patient agrees with plan. Anticipatory guidance given. Differential Diagnosis Differential diagnosis: Likely upper respiratory infection, sinusitis, bronchitis, pharyngitis and other (Strep throat) Lab Data Attestation: I reviewed the patient's lab results. Lab results narrative: Rapid strep negative. Critical Care Time Critical Care Time Critical Care Time: No Discharge Plan Discharge Clinical Impression: Sinusitis Qualifiers: Sinusitis location: unspecified location Chronicity: acute Recurrence: non-recurrent Qualified Code(s): J01.90 - Acute sinusitis, unspecified Patient Disposition: Home Condition: Stable Instructions: Antibiotic Form, Sinusitis (ED) Additional Instructions: Your rapid strep screen is negative. Please take the Augmentin as prescribed until gone. You may continue [id number] medication as needed for symptoms. Follow-up with your PCP next week if symptoms are not improving. To the ER if symptoms worsen to include shortness of breath, difficulty swallowing, development of new fever greater than 100.3. Patient Language: Sami Prescriptions: New amoxicillin-pot clavulanate 875-125 mg tablet 1 tablet PO Q12H 7 Days Qty: 14 0RF No Action lamotrigine 150 mg tablet 150 mg PO DAILY trazodone 50 mg tablet 50 mg PO DAILY sertraline 100 mg tablet 100 mg PO DAILY methylphenidate HCl 36 mg tablet extended release 24hr 36 mg PO DAILY bupropion HCl 150 mg tablet extended release 24 hr 150 mg PO DAILY triamcinolone acetonide [Nasacort Allergy] 55 mcg aerosol,spray 2 spray intranasal DAILY Qty: 16.9 0RF Rx Instructions: administer into each nostril lamotrigine 25 mg tablet Follow-up/Referrals: Brain,Jose Jesus MD [Primary Care Provider, Unknown] Time of Disposition: 09:08
[2025-02-01 09:17] LABS: EDSTREPNEGPOS1 Negative (Negative)
--- OUTSIDE RECORDS SUMMARY | 2025-02-01 17:17 | XMS_ITS | Data Portability ---
Author Organization [facility] Address [address] [place] [address] Care Team Providers Care Practice Coordinator Name Role Phone NICOLÁS REIS Primary Care Provider [phone] Assessment Encounter Date Assessment Date Assessment LastModified by Organization Details LastModified Time 01/30/2021 01/30/2021 Annual gynecological exam performed. Patient will come back in a year unless there are new symptoms. Not available 01/30/2021 16:40:03 03/03/2022 03/03/2022 Annual gynecological exam performed. Patient will come back in a year unless there are new symptoms. [email or web address] Not available 03/03/2022 09:43:34 03/08/2023 03/08/2023 Annual gynecological exam performed. Patient will come back in a year unless there are new symptoms. Not available 03/08/2023 09:27:59 05/10/2024 05/10/2024 Annual gynecological exam performed. Patient will come back in a year unless there are new symptoms. [email or web address] Not available 05/05/2024 11:40:23 Plan of Treatment Reminders Order Date Submit Date Provider Last Modified By Organization Details Last Modified Time Details Appointments None recorded. Lab CBC w/ auto diff 2020 021 [email or web address] [facility] (Lab), [address], [place], [address], 14:56:18 CMP, serum or plasma 2020 021 [email or web address] [facility] (Lab), [address], [place], [address], 1 14:56:18 lipid panel, blood [address] (Lab), [address], [place], [address], 1 14:56:18 TSH, serum or plasma [address] (Lab), [address], [place], [address], 1 14:56:19 vitamin D, 25-hydroxy, total, serum [address] (Lab), [address], [place], [address], 1 14:56:19 Referral pelvic floor therapy referral 2024 025 [facility], [address] [place] [address], [place], [address], 5 05:01:18 Procedures None recorded. Surgeries None recorded. Imaging MAMMO, screening, bilateral 2022 023 [facility], [address], [place], [address], 4 05:01:45 MAMMO, screening, digital, bilateral 2020 021 [facility], [address], [place], [address], 2 11:11:13 Medication Orders nystatin-tr iamcinolone 100,000 unit/gram-0 .1 % topical ointment 2022 023 [email or web address] [facility], [address] [place], [address], 11:40:46 fluconazole 150 mg tablet 2022 023 [email or web address] [facility], [address] [place], [address], 11:40:34 Patient TargetsNo targets recorded. Patient InstructionsNo instructions recorded. Reason for Referral Pelvic Floor Therapy Referra l for Female urinary stress incontinence Referring Physician: Yesenia Johnson, Gynecology, Encounter Date: 05/10/2024 Results Created Date Observation Date Name Description Value Unit Range Abnormal Flag Note LastModifiedBy Organization Detail LastModifiedTime 02/06/2002/05/2021 IMAGE GUIDE D PAP AND HPV REGAR DLESS image guided Pap, HPV regardless of Pap result SEE RESULT S BELOW CASE REPOR T: Cytol ogy Gynec ologi je Repor t Case: [id number] Autho yomi bryant Provi jarrett: Beth Peterson, MELO Colle cted: 02/05 1023 Order ing Locat ion: [place] Patho log[facility] Recei davonte: 02/06 0024 First Scree n: Bonita treviño, [place] , [place] Rescr een: Mansi Salcido, CT Speci men: Scree viktoriya Pap - Image d, Cervi x STATE MENT OF ADEQU ACY: Satis facto ry for evalu ation Trans forma tion zone compo nent absen t The absen ce of an endoc ervic al compo nent was confi rmed by an addit ional scree ner. FINAL DIAGN OSIS: Negat phillip for Intra epith elial Lesio n or Butch umaña (NIL) . Elect france fiore bennie d by Mansi Salcido, CT on 02/12 at 8:38 AM ----- ----- ----- ----- ----- ----- ----- ----- ----- ----- ----- ----- ----- ----- ----- ----- ----- ---- HPV RESUL TS: HPV mRNA E6/E7 : No HPV mRNA Detec jeovanny NOTE: This high risk HPV mRNA assay detec ts fourt een high- risk HPV types (16, 18, 31, 33, 35, 39, 45, 51, 52, 56, 58, 59, 66, 68) witho ut diffe renti ation . COMME NT: Note: This speci men was revie wed by a Cytot echno logis t and/o r Patho logis t (as indic ated in this repor t) after evalu ation using the Thinp rep Imagi ng Syste m. CLINI JE INFOR MATIO N: Menst rual Statu s: LMP (if appli cable ): Clini je Histo ry/Pr eviou s Pap: Type of Neopl alonso (if appli cable ): Signi fican t Clini je Findi ngs: Other Histo ry: Hormo juan francisco (if appli cable ): PAP EDUCA ANETA L NOTE: The Pap Test is a scree viktoriya test with an inher ent false negat phillip rate. Liqui d-bas e sampl ing may decre ase, but will not elimi edwin, false negat phillip resul ts. A negat phillip resul t does not precl ude the prese nce and/o r devel opmen t of disea se, since the prese nce of abnor mal cells in the sampl e depen ds on the locat ion of the lesio n and sampl ing techn ique. Son nued regul ar scree vitkoriya is the best metho d of cance r preve ntion . If repor jeovanny cytol ogic findi ng do not corre late with physi je and/o r histo rical findi ngs, furth er inves tigat ion is recom gustavo d, as clini jarrod baez nted. Not Available [facility] (Lab) [address], [place], [address], 02/12/2021 09:40:58 03/03/20 22 03/03/2022 IMAGE GUIDE D PAP AND HPV REGAR DLESS image guided Pap, HPV regardless of Pap result SEE RESULT S BELOW CASE REPOR T: Cytol ogy Gynec ologi je Repor t Case: [id number] Autho yomi bryant Provi jarrett: Lizeth Mccarty, MARIN Hurst cted: 03/03 1136 Order ing Locat ion: [place] Patho logy Recei davonte: 03/04 0143 First Scree n: William Haro , [place] Rescr een: Alexandro astorga, Tejsa banerjee, [place] Speci men: Windy sadler Pap - Image d, Cervi x STATE MENT OF ADEQU ACY: Satis facto ry for evalu ation Trans forma tion zone compo nent prese nt FINAL DIAGN OSIS: Negat phillip for Intra epith elial Broderick otoole or Butch umaña (NIL) . Elect france fiore bennie d by Alexandro astorga, Tejas banerjee, CT on 2021 at 8:49 PM ----- ----- ----- ----- ----- ----- ----- ----- ----- ----- ----- ----- ----- ----- ----- ----- ----- ---- HPV RESUL TS: HPV mRNA E6/E7 : No HPV mRNA Detec jeovanny NOTE: This high risk HPV mRNA assay detec ts fourt een high- risk HPV types (16, 18, 31, 33, 35, 39, 45, 51, 52, 56, 58, 59, 66, 68) witho ut diffe renti ation . COMME NT: Note: This speci men was revie wed by a Cytot echno logis t and/o r Patho logis t (as indic ated in this repor t) after evalu ation using the Thinp rep Imagi ng Syste m. CLINI JE INFOR MATIO N: Menst rual Statu s: LMP (if appli cable ): Clini je Histo ry/Pr eviou s Pap: Type of Neopl alonso (if appli cable ): Signi fican t Clini je Findi ngs: Other Histo ry: Hormo juan francisco (if appli cable ): PAP EDUCA ANETA L NOTE: The Pap Test is a scree viktoriya test with an inher ent false negat phillip rate. Liqui d-bas ed sampl ing may decre ase, but will not elimi edwin, false negat phillip resul ts. A negat phillip resul t does not precl ude the prese nce and/o r devel opmen t of disea se, since the prese nce of abnor mal cells in the sampl e depen ds on the locat ion of the lesio n and sampl ing techn ique. Son nued regul ar scree viktoriya is the best metho d of cance r preve ntion . If repor jeovanny cytol ogic findi ng do not corre late with physi je and/o r histo rical findi ngs, furth er inves tigat ion is recom gustavo d, as clini jarrod baez nted. Not Available [facility] (Lab) [address], [place], [address], 03/04/2022 21:52:38 03/08/20 23 03/08/2023 IMAGE GUIDE D PAP AND HPV REGAR DLESS image guided Pap, HPV regardless of Pap result SEE RESULT S BELOW CASE REPOR T: Cytol ogy Gynec ologi je Repor t Case: [id number] Autho yomi g Provi jarrett: Lizeth Mccarty, MARIN Colle cted: 03/08 1651 Order ing Locat ion: [place] Patho [place] Recei davonte: 03/09 0123 First Scree n: William Haro , [place] Speci men: Scree viktoriya Pap - Image d, Cervi x STATE MENT OF ADEQU ACY: Satis facto ry for evalu ation Trans forma tion zone compo nent prese nt FINAL DIAGN OSIS: Negat phillip for Intra epith elial Lesio n or Butch umaña (NIL) . Jer fiore bennie d by William Haro , CT on 03/10 at 12:17 PM ----- ----- ----- ----- ----- ----- ----- ----- ----- ----- ----- ----- ----- ----- ----- ----- ----- ---- HPV RESUL TS: HPV mRNA E6/E7 : No HPV mRNA Detec jeovanny NOTE: This high risk HPV mRNA assay detec ts fourt een high- risk HPV types (16, 18, 31, 33, 35, 39, 45, 51, 52, 56, 58, 59, 66, 68) witho ut diffe renti ation . COMME NT: This speci men was revie wed by a Cytot echno logis t and/o r Patho logis t (as indic ated in this repor t) after evalu ation using the Thinp rep Imagi ng Syste m. CLINI JE INFOR MATIO N: Menst rual Statu s: LMP (if appli cable ): 02/22 Clini je Histo ry/Pr eviou s Pap: Type of Neopl alonso (if appli cable ): Signi fican t Clini je Findi ngs: Other Histo ry: Hormo juan francisco (if appli cable ): PAP EDUCA ANETA L NOTE: The Pap Test is a scree viktoriya test with an inher ent false negat phillip rate. Liqui d-bas ed sampl ing may decre ase, but will not elimi edwin, false negat phillip resul ts. A negat phillip resul t does not precl ude the prese nce and/o r devel opmen t of disea se, since the prese nce of abnor mal cells in the sampl e depen ds on the locat ion of the lesio n and sampl ing techn ique. Son nued regul ar scree viktoriya is the best metho d of cance r preve ntion . If repor jeovanny cytol ogic findi ng do not corre late with physi je and/o r histo rical findi ngs, furth er inves tigat ion is recom gustavo d, as clini jarrod baez nted. Not Available [facility] (Lab) [address], [place], [address], 03/10/2023 13:20:19 05/07/19 22 05/07/2021 MAMMO , scree viktoriya, digit al, bilat eral No observ ation record ed. [address] [facility], [place], [address], 05/15/2021 10:22:50 05/07/19 22 05/07/2021 MAMMO , scree viktoriya, digit al, bilat eral No observ ation record ed. [address] [facility], [place], [address], 05/13/2021 10:44:17 05/26/19 22 05/26/2021 MAMMO , diagn ostic , unila teral No observ ation record ed. [address] [facility], [place], [address], 05/27/2021 10:31:36 05/26/19 22 05/26/2021 MAMMO , diagn ostic , unila teral No observ ation record ed. [address] [facility], [place], [address], 05/27/2021 10:28:24 Result Notes None recorded. 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 16:30:03 Problem Notes None recorded. Procedures Surgical History Date Name Laterality Status Provider Name and Address Organization Details Recorded Time 05/19/19 24 Date of Last Mammogram completed Beatris Bates [facility] 05/10/2024 09:38:57 03/08/20 23 Date of Last [facility] 03/08/2023 16:22:10 03/29/19 21 Breast Biopsy [facility] 03/08/2023 09:48:07 03/29/19 21 lumpectomy of breast completed [facility] 03/08/2023 09:48:11 03/29/19 18 cholecystectomy completed Cyndi Enriquezan [facility] 01/30/2021 16:42:31 03/29/18 93 extraction of wisdom tooth [facility] 03/08/2023 09:48:22 Imaging Results None recorded. Procedure Notes None recorded. Medical Equipment None Reported. Allergies No known drug allergies Medications Name Sig Start Date Stop Date Status Note LastModified by Organization Details LastModified Time cyclobenz aprine 10 mg tablet 01/30 completed Not Available Not Available Not Available amoxicill in 500 mg capsule 01/30 completed Not Available Not Available Not Available lamotrigi ne 150 mg tablet Take 1 tablet every day by oral route. 03/08 completed Not Available Not Available Not Available trazodone 50 mg tablet 03/08 completed Not Available Not Available Not Available fluconazo le 150 mg tablet take 1 tablet by mouth 05/05 completed Not Available Not Available Not Available sertralin e 100 mg tablet 1 tablet every day by oral route. active Not Available Not Available No t Available nystatin- triamcino lone 100,000 unit/gram -0.1 % topical ointment APPLY TO THE AFFECTED AREA(S) BY TOPICAL ROUTE 2 TIMES PER DAY FOR 7 DAYS 05/05 completed Not Available Not Available Not Available oxycodone -acetamin ophen 5 mg-325 mg tablet 03/03 completed Not Available Not Available Not Available colesevel am 625 mg tablet 01/30 completed Not Available Not Available Not Available Lamictal 25 mg tablet take 2 tablet by oral route 2 times every day 01/29 completed Prescrib ed Elsewher e: Yes Loca tion: [facility] M odify By: [email or web address] z Encoun ter DateTime : 08/21/19 17 02:00:00 PM Not Available Not Available Not Available nystatin- triamcino lone 100,000 unit/g-0. 1 % topical cream 05/05 completed Not Available Not Available Not Available sertralin e 25 mg tablet 03/03 completed Not Available Not Available Not Available lotepredn ol etabonate 0.5 % eye drops,kecia pension INSTILL 1 DROP LEFT EYE TWICE DAILY FOR 7 DAYS 05/05 completed Not Available Not Available Not Available ibuprofen 600 mg tablet 01/30 completed Not Available Not Available Not Available scopolami ne 1 mg over 3 days transderm al patch 01/30 completed Not Available Not Available Not Available lamotrigi ne 100 mg tablet active Not Available Not Available Not Available naproxen 500 mg tablet active Not Available Not Available Not Available methylphe nidate ER 36 mg tablet,ex tended release 24 hr Take 1 tablet every day by oral route. active Not Available Not Available No t Available amoxicill in 875 mg-potass ium clavulana te 125 mg tablet TAKE 1 TABLET BY MOUTH EVERY 12 HOURS FOR 10 DAYS 03/08 completed Not Available Not Available Not Available tobramyci n 0.3 %-dexamet hasone 0.1 % eye drops,kecia pension 03/08 completed Not Available Not Available Not Available methylphe nidate ER 27 mg tablet,ex tended release 24 hr 03/08 completed Not Available Not Available Not Available bupropion HCl XL 300 mg 24 hr tablet, extended release active Not Available Not Available Not Available bupropion HCl XL 150 mg 24 hr tablet, extended release active Not Available Not Available Not Available duloxetin e 30 mg capsule,d elayed release 01/30 completed Not Available Not Available Not Available duloxetin e 60 mg capsule,d elayed release 01/30 completed Not Available Not Available Not Available Cymbalta 20 mg capsule,d elayed release take 1 capsule by oral route 2 times every day 01/29 completed Prescrib ed Elsewher e: Yes Loca tion: [facility] Eligio villalobos By: [email or web address] z Encoun ter DateTime : 08/21/19 02:00:00 PM Not Available Not Available Not Available Vitals Date Recorded Body height Body mass index (BMI) Body weight Systolic And Diastolic Provider Name and Address Organization Details Last Updated DateTime 05/10/2024 162.56 cm 31.2 kg/m2 30385.37 g 122/83 mm[Hg] Beatris Jana [facility] 05/10/2024 09:37:57 Date Recorded Body height Body mass index (BMI) Body weight Systolic And Diastolic Systolic And Diastolic Provider Name and Address Organization Details Last Updated DateTime 01/30/2021 162.56 cm 33.5 kg/m2 27862.51 g 155/90 mm[Hg] 148/89 mm[Hg] Cyndi Zimmerman [facility] 16:40:23 Date Recorded Body height Body mass index (BMI) Body weight Systolic And Diastolic Provider Name and Address Organization Details Last Updated DateTime 02/05/2021 162.56 cm 33.6 kg/m2 40624.1 g 126/82 mm[Hg] Cyndi Zimmerman [facility] 02/05/2021 09:35:33 Date Recorded Systolic And Diastolic Provider Name and Address Organization Details Last Updated DateTime 03/03/2022 140/86 mm[Hg] [facility] [employer] [facility] [address], [place], [address], [facility] 03/03/2022 10:07:39 Date Recorded Body height Body mass index (BMI) Body weight Systolic And Diastolic Provider Name and Address Organization Details Last Updated DateTime 03/03/2022 162.56 cm 34.1 kg/m2 78291.73 g 144/97 mm[Hg] Melissa Leroy [facility] 03/03/2022 09:44:11 Date Recorded Body height Body mass index (BMI) Body weight Systolic And Diastolic Provider Name and Address Organization Details Last Updated DateTime 03/08/2023 162.56 cm 32.4 kg/m2 21017.96 g 150/87 mm[Hg] Tegan Bustos [facility] 03/08/2023 09:45:15 Social History Question Answer Notes LastModified by Organizat ion Details LastModified Time Tobacco Smoking Status Never Smoker Martha Amin jed, [facility] 03/08/2023 09:24:36 Do You Have An Advance Directive? No [email or web address] Information n ot available 02/05/2021 How Many Years Have You Consumed Alcohol? 25 [email or web address] Information not available 02/05/2021 Are You Blind Or Do You Have Difficulty Seeing? No [email or web address] Information n ot available 02/05/2021 What Is Your Level Of Caffeine Consumption? Moderate [email or web address] Information not available 02/05/2021 How Much Tobacco Do You Chew? None Information not available 02/05/2021 In The 14 Days Before Symptom Onset, Have You Had Close Contact With A Laboratory-confirm ed COVID-19 While That Case Was Ill? No [email or web address] Information n ot available 02/05/2021 In The 14 Days Before Symptom Onset, Have You Had Close Contact With A Person Who Is Under Investigation For COVID-19 While That Person Was Ill? No [email or web address] Information not available 02/05/2021 Have You Been To An Area Known To Be High Risk For COVID-19? No [email or web address] Information not available 02/05/2021 Are You Deaf Or Do You Have Serious Difficulty Hearing? No [email or web address] Information not available 02/05/2021 What Type Of Diet Are You Following? REGULAR [email or web address] Information n ot available 02/05/2021 What Is The Highest Grade Or Level Of School You Have Completed Or The Highest Degree You Have Received? BA13918-3 [email or web address] Information not available 02/05/2021 Are There Any Guns Present In Your Home? No [email or web address] Information not available 02/05/2021 Do You Use Protection During Sex? No [email or web address] Information not available 02/05/2021 Do You Use Your Seat Belt Or Car Seat Routinely? Yes [email or web address] Information not available 02/05/2021 Do You Have Smoke And Carbon Monoxide Detectors In Your Home? Yes [email or web address] Information not available 02/05/2021 How Much Tobacco Do You Smoke? No [email or web address] Information not available 02/05/2021 Do You Use Sunscreen Routinely? Yes [email or web address] Information not available 02/05/2021 Have You Used IV Drugs? No Information not available 02/05/2021 Do You Have Difficulty Walking Or Climbing Stairs? No [email or web address] Information not available 03/08/2023 Sex: Female Functional Status Question Answer Note LastModified by Organizat ion Details LastModified Time Do you use any illicit or recreational drugs? No [email or web address] Information not available 02/05/2021 What is your level of alcohol consumption? Occasional [email or web address] Information not available 03/03/2022 Are you able to walk independently without assistance or assistive devices? YESWOREST [email or web address] Information not available 02/05/2021 Are you able to care for yourself independently? 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 No [email or web address] Information not available 03/08/2023 What is your exercise level? Occasional Information not available 02/05/2021 Mental Status Question Answer Note LastModified by Organization D etails LastModified Time Do you feel stressed (tense, restless, nervous, or anxious, or unable to sleep at night)? [id number] [email or web address] Information not available 05/10/2024 Family History Relationship Description Onset Age of this Age Resolved Age Notes LastModified by Organization Details LastModified Time Brother Mental disorder [email or web address] Not available 2020 16:35:27 Father Mental disorder [email or web address] Not available 2020 16:35:32 Father Diabetes mellitus [email or web address] Not available 2020 16:35:49 Father Hypertensive disorder [email or web address] Not available 2020 16:36:02 Sister Mental disorder [email or web address] Not available 2020 16:35:38 Maternal Aunt Hypercholest erolemia [email or web address] Not available 2020 16:35:56 Mother Malignant neoplasm of cervix uteri Not available 05/2020 16:36:08 Mother Endometriosi s (clinical) [email or web address] Not available 02/2025 09:31:44 Notes:Cancer risk form compl ete 02/03/2021 Medical History Condition Response Allergies (Food, seasonal, environmental ) N Other Y Breast Cancer N Drug/Latex Allergies/Reactions N Blood Transfusion N Dermatologic Disorders N Lung Disease N Defects or Inherited Disease N Breast Problem Y Gestational Diabetes N Hematologic disorders N Anesthesia Complications N History of STI N Deep Vein Thrombosis N Polycystic ovary syndrome N Anxiety Disorder Y Autoimmune disease N Arthritis N Infertility N Polyps N Acid Reflux (GERD) N History of abnormal pap Y Cancer N Stroke N Varicosities N Neurologic/Epilepsy Y Endometriosis Y High Cholesterol N Headaches N Fibromyalgia N Kidney Disease N Heart Problems N Kidney or Bladder Problems N Thyroid Problems N GI Problems N Eating Disorder N Anemia N Art (IVF or FET) N Psychiatric Illness Y Ovarian Cancer N Diabetes N Pulmonary (TB, Asthma) N Hepatitis/Liver Disease N No Past Medical History N Eczema N Urinary Tract Infection N Abuse/Domestic Violence N Asthma N Trauma/Violence N Depression/ depression Y Heart Disease N Pre-Eclampsia N Hypertension N Osteoporosis N Thrombophilias N Gynecological History Statement/Question Response Date of Last Mammogram 05/19/2023 Flow Moderate Date of LMP 04/27/2024 N Was last menstrual period normal Y STIs/STDs N Date of Last Colonoscopy Desired Control Method None Abnormal Pap Yes On BCP's at Conception? N HPV Vaccine N Duration of Flow (days) 4 Current Control Method Partner Vas ectomy Age at First Child 30 Are cycles usually normal N Frequency of Cycle (Q days) 29 Sexually Active? Y Menses Monthly N Age of first menstrual cycle 15 Date of Last Pap Smear 03/08/2023 Sexual Problems? N LMP Approximate N Obstetrics History GPAL:G 2 P 2 0 0 2 Type Value Full Term 2 Living 2 Total 2 Past Encounters Encounter ID Performer Location Encounter Start Date Encounter Closed Date Diagnosis/Indication Diagnosis SNOMED-CT Code Diagnosis ICD10 Code Diagnosis IMO Codes Diagnosis Note [id number] Beth Cerda CNM [place] [address] [address] 01/30/2021 16:31:24 02/01/2021 19:14:13 [id number] Beth Cerda CNM [place] [address] [address] 02/05/2021 09:29:25 02/05/2021 11:29:56 Gynecologic examination [id number] Z01.419 Z11.51 Suggested Calcium with Vitamin D 1200-1500m g daily. Patient advised to get an annual flu shot in the fall and she could obtain at [facility] or [facility] take care clinic. Also to obtain TDap vaccinatio n if you have not had one in the last 10 years. Has already had covid vaccine. Recommend yearly mammograms . Encouraged monthly self breast exams. Encourage safe sexual practices, to use condoms and limit partners if not already in a monogamous relationsh ip. Engage in daily exercise of low impact aerobic exercise 45-60 minutes 4-5 times weekly. Avoid tobacco and illicit drugs as well as using moderation with alcohol intake less than 1-2 8 oz beverages daily. This lifestyle behavior pattern will lead to less health conditions and longer life span. If BMI greater than 25 weight watchers or dietary consult advised. Order given for mammogram and comprehens phillip health panel. Pt will call us 1 week after having testing to ensure we have received results. All questions have been answered. Patient appears to understand informatio n, but if you have any questions please call or respond to this email. [id number] COLTON [facility] [place] [address] [address] 03/03/2022 09:31:50 03/03/2022 10:18:26 Gynecologic examination [id number] Z01.419 Suggested Calcium with Vitamin D 1200-1500m g daily. Patient advised to get an annual flu shot in the fall and she could obtain at [facility] or [facility] take care clinic. Also to obtain TDap vaccinatio n if you have not had one in the last 10 years. Recommend yearly mammograms . Encouraged monthly self breast exams. Encourage safe sexual practices, to use condoms and limit partners if not already in a monogamous relationsh ip. Engage in daily exercise of low impact aerobic exercise 45-60 minutes 4-5 times weekly. Avoid tobacco and illicit drugs as well as using moderation with alcohol intake less than 1-2 8 oz beverages daily. This lifestyle behavior pattern will lead to less health conditions and longer life span. If BMI greater than 25 weight watchers or dietary consult advised. All questions have been answered. Patient appears to understand informatio n, but if you have any questions please call or respond to this email. WWEBC - Partner with vasectomyN ormal, monthly mensesHx of abnormal pap in 2009, no procedures required per patientLas t pap 2020, NILM, HPV (-) (No endo)Pap done todaySTI testing declinedFo llowing with [facility] breast clinic, benign right breast lump removed 07/2021.(R esults per consult note -Intraduct al papilloma and fibrocysti c change. -Surgical margins negative for atypical hyperplasi a, in situ and invasive carcinoma) . Repeat mammogram due 07/2022 per patient, she will follow with breast clinic for this.Famil y hx of maternal grandmothe r with ovarian cancer, 2 maternal aunts with BC. Genetic testing discussed, handout given. She will consider.C olon cancer screening discussed, she will f/u with PCP for thisRTC in 1 year or sooner if needed BP today 140/86, no symptoms. She has BP check scheduled with PCP. ED precaution s discussed [id number] [facility] [place] [address] [address] 03/08/2023 09:26:30 03/08/2023 14:29:25 Gynecologic examination [id number] Z01.419 WWEBC - partner with vasectomyp ap updated per pt preference mammogram order given and encouraged to scheduleco ade CA screening discussed and encouraged UTD with PCP for routine labs - f/u with PCP for BPRTC in 1 yr or sooner if needed Suggested Calcium with Vitamin D daily. Patient advised to get an annual flu shot in the fall and she could obtain at [facility] or [facility] take care clinic. Also to obtain TDap vaccinatio n if you have not had one in the last 10 years. Recommend yearly mammograms . Encouraged monthly self breast exams. Encourage safe sexual practices, to use condoms and limit partners if not already in a monogamous relationsh ip. Engage in daily exercise of low impact aerobic exercise 45-60 minutes 4-5 times weekly. Avoid tobacco and illicit drugs. This lifestyle behavior pattern will lead to less health conditions and longer life span. If BMI greater than 25 dietary consult advised. All questions have been answered. Patient appears to understand informatio n, but if you have any questions please call or respond to this email. Screening mammography 24 [id number] Z12.31 Vaginitis [id number] N76.0 rx sent for yeast, r/b/a reviewedvu lvar care guidelines discussed - d/c use of scented products/s oaps/wipes Female uri nary stress incontinence [id number] N39.3 PFPT referral offered - declinedde ashley olveray the office if desires referral in the future Time spent in visit is a total of 45 mins with at least 50% of visit consisting of counseling and review of plan of care. [id number] Atif Tsai MD [place] [address] [address] 05/10/2024 09:31:36 05/10/2024 10:13:58 Gynecologic examination [id number] Z01.419 Annual gynecologi je exam performed. Patient will come back in a year unless there are new symptoms. Suggest Calcium with Vitamin D if not eating in diet. Patient advised to get annual flu shot. Recommend yearly physicals and perform monthly breast exams. Genetic testing is available for patients with family history of cancer. Engage in safe sexual practices, use condoms. Encouraged to have daily exercise. Avoid tobacco and illicit drugs, moderation of alcohol. If BMI greater than 25 dietary consult advised. If you have any questions please call or email. mammogram- Following with [facility] breast clinic, benign right breast lump removed nn ual mammogram due 04/2024 per patient, she will follow with breast clinic for this; states that she does not need order.colo n cancer screening - UTD PCPDEXA scan- n/a Pap smear- UTD (2022- WN), will repeat in 2025 per ASCCP guidelines laboratory evaluation - PCP STI testing - declined Female uri nary stress incontinence [id number] N39.3 Recommende d pelvic floor therapy to strengthen pelvic floor and help relieve stress incontinen ce.Patient interested in referral. Health Concerns Section Related Observation LastModified by Organization Detai ls LastModified Time None Recorded Concern Status LastModified by Organization Details LastModified Time None Recorded Advance Directives Directive N: Payers Insurance Date Sequence Insurance Name Policy Number Policy Michel Covered Member ID Michel Member ID Guarantor Name 05/07/2024 1 [facility] ([facility]) [id number] Isaías Lugo Arabella [id number] Soha Teixeira Arabella Notes Date Note Type Note Provider Name and Address Organization Details Recorded Time 1 text/html Annual GYNReported by Patient R/S Provider out for delivery Beth adkins [facility] 02/01/2021 19:14:11 1 text/html Annual GYNReported by PatientGenitourinary symptomsFor menstrual cycle, patient reportsnormal menses. For urinary symptoms, patient reportsno hematuriaandno incontinence. For vulva, patient reportsno genital lesion. For vagina, patient reportsnormal vaginal discharge.Breast symptomsFor breast, patient reportsno breast pain,no breast lump, andno nipple discharge.Endocrine symptomsFor sexual complaints, patient reportsno sexual complaints,no pain during intercourse, andnormal libido. For menopausal symptoms, patient reportsno menopausal symptomsandnormal vaginal lubrication.Psychological symptomsFor psychological symptoms, patient reportsno depression,no anxiety, andno pmdd. Beth Cerda jed [facility] 02/05/2021 10:18:26 2 text/html Annual GYNReported by PatientGenitourinary symptomsFor menstrual cycle, patient reportsnormal menses. For urinary symptoms, patient reportsno hematuriaandno incontinence. For vulva, patient reportsno genital lesion. For vagina, patient reportsnormal vaginal discharge.Breast symptomsFor breast, patient reportsno breast pain,no breast lump, andno nipple discharge.ContraceptionFo r current contraception, patient reportspartner had vasectomy.Endocrine symptomsFor sexual complaints, patient reportsno sexual complaints,no pain during intercourse, andnormal libido. For menopausal symptoms, patient reportsno menopausal symptomsandnormal vaginal lubrication.Psychological symptomsFor psychological symptoms, patient reportsno depression,no anxiety, andno pmdd.Preventative measuresFor preventive measures, patient reportsencourage self breast examination,encourage regular exercise,encourage no tobacco use,encourage regular mammograms starting age 40,mammogram performed within the past year, andneeds to schedule colonoscopy. [facility] [address], [place], [address], [facility] 03/03/2022 10:07:48 3 text/html Annual GYNReported by PatientGenitourinary symptomsFor vagina, patient reportsvaginal itchingbut reportsnormal vaginal discharge. For menstrual cycle, patient reportsnormal menses. For urinary symptoms, patient reportsno hematuriaandno incontinence. For vulva, patient reportsno genital lesion.Breast symptomsFor breast, patient reportsno breast pain,no breast lump, andno nipple discharge.ContraceptionFo r current contraception, patient reportssatisfied with current contraceptionandpartner had vasectomy.Endocrine symptomsFor sexual complaints, patient reportsno sexual complaints,no pain during intercourse, andnormal libido. For menopausal symptoms, patient reportsno menopausal symptomsandnormal vaginal lubrication.Psychological symptomsFor psychological symptoms, patient reportsno depression,no anxiety, andno pmdd.Preventative measuresFor preventive measures, patient reportsencourage self breast examination,encourage regular exercise,encourage no tobacco use,encourage regular mammograms starting age 40,needs to schedule mammogram, andneeds to schedule colonoscopy.hx of abnormal pap 2010normals sincelast pap 03/03/2022 - normal benign right breast lump removed 07/2021. Cleared from breast surgery per pt - She is unsure if she has had a mammogram since this occasional CINDY with coughing/laughing/sneezin g [facility] [address], [place], [address], [facility] 03/08/2023 13:52:42 5 text/html Annual GYNReported by PatientHistoryFor history, patient reportsno gynecologic complaints.Genitourinary symptomsFor urinary symptoms, patient reportsstress incontinencebut reportsno hematuria. For menstrual cycle, patient reportsnormal menses. For vulva, patient reportsno genital lesion. For vagina, patient reportsnormal vaginal discharge.Breast symptomsFor breast, patient reportsno breast pain,no breast lump, andno nipple discharge.ContraceptionFo r current contraception, patient reportspartner had vasectomy.Endocrine symptomsFor sexual complaints, patient reportsno sexual complaints,no pain during intercourse, andnormal libido. For menopausal symptoms, patient reportsno menopausal symptomsandnormal vaginal lubrication.Psychological symptomsFor psychological symptoms, patient reportsno depression,no anxiety, andno pmdd.Preventative measuresFor preventive measures, patient reportsencourage self breast examination,encourage regular exercise,encourage no tobacco use, andencourage regular mammograms starting age 40. Patient presents for annual well woman exam. Patient reports worsening urinary stress incontinence with laughing, sneezing, coughing. YESENIA JOHNSON, [place] [address], [place], [address], [facility] 05/10/2024 10:08:44 OBGyn Episode Ob Episode Information Episode Created Date Number of Fetuses Patient Bloodtype Patient rh Status Prepregnancy Weight lbs Domestic Partner Domestic Partner Phone Father Name [employer] Status 01/31/20 21 1 CLOSED Fetus Data First Name Last Name Admitted to NICU Weight (g) Sex Living Outcome Pediatric Complications Fetus ID Race Codes Race Delivery Type 3826.95 [id number] F Full Term [id number] Vaginal Delivery Agapito Calculation Initial Agapito Date Initial Exam Date Initial Exam Provider Initial Ultrasound Date Last Menstrual Period Date Ultra Sound Weeks Gestation 0 Eighteen To Twenty Week Agapito Update Ultra Sound Date Fundal Height At Umbil Quickening Date Ultra Sound Latest Weeks Gestation Final Agapito Confirmed By Final Agapito Confirmed Date Final Agapito Date Ultra Sound Latest Days Gestation 0 0 Menstrual History Last Menstrual Date Menses Monthly On Bcp Conception Prior Menses Frequency Hcg Plus Date Menarche Onset Age Delivery Information Delivery Date Delivery Type Labor Anesthesia Weeks Gestation Incision Type Labor Labor Length Hrs Delivered By Post Complications Tubal Sterilization Discharge Date Comments 6 40 Discharge Information Feeding Method Contraceptive Method Maternal HG B and HCT Levels Ob Episode Information Episode Created Date Number of Fetuses Patient Bloodtype Patient rh Status Prepregnancy Weight lbs Domestic Partner Domestic Partner Phone Father Name [employer] Mechanic Status 01/31/20 21 1 CLOSED Fetus Data First Name Last Name Admitted to NICU Weight (g) Sex Living Outcome Pediatric Complications Fetus ID Race Codes Race Delivery Type 3798.83 3 M Full Term [id number] Vaginal Delivery Agapito Calculation Initial Agapito Date Initial Exam Date Initial Exam Provider Initial Ultrasound Date Last Menstrual Period Date Ultra Sound Weeks Gestation 0 Eighteen To Twenty Week Agapito Update Ultra Sound Date Fundal Height At Umbil Quickening Date Ultra Sound Latest Weeks Gestation Final Agapito Confirmed By Final Agapito Confirmed Date Final Agapito Date Ultra Sound Latest Days Gestation 0 0 Menstrual History Last Menstrual Date Menses Monthly On Bcp Conception Prior Menses Frequency Hcg Plus Date Menarche Onset Age Delivery Information Delivery Date Delivery Type Labor Anesthesia Weeks Gestation Incision Type Labor Labor Length Hrs Delivered By Post Complications Tubal Sterilization Discharge Date Comments 8 40 Discharge Information Feeding Method Contraceptive Method Maternal HG B and HCT Levels
--- OUTSIDE RECORDS SUMMARY | 2025-02-01 17:17 | XMS_ITS | Patient Health Record ---
Author Organization [facility] Address [address] [facility] [address] [place] [address] Care Team Providers Care Director Of Early Childhood Name Role Phone Jose De La Paz MD Primary Care Provider Yovani Salazar Unavailable [phone] Allergies No Known Allergies Reason For Referral No Information Medications Medication SIG (Take, Route, Frequency, Duration) Notes Start Date End Date Status Sertraline HCl 100 MG Tablet 1 tablet [...] BY MOUTH EVERY DAY; Duration: 90 Not-Taking Pantoprazole Sodium 40 MG Tablet Delayed Release Oral; Duration: 30 Days Not-Taking Methylphenidate HCl ER 36 MG Tablet Extended Release 1 tablet every morning Oral once a day 01/09/2025 Active Cholestyramine 4 GM Packet Oral; Duration: 30 Days Active lamoTRIgine 25 MG Tablet 2 tablets Oral Once a day; Duration: 90 days see change 01/22/2025 Active Pantoprazole Sodium 40 MG Tablet Delayed Release Oral; Duration: 30 Days Not-Taking Colesevelam HCl 625 mg TABLET ORAL 07/29/2023 Not-Taking Multivitamin Adults Tablet Oral 07/29/2023 Active ZyrTEC *Reorder from [facility] for eRx and Interaction Alerts* 07/29/2023 Active Immunizations Vaccine Route Administration Date Status Comme nts Pfizer Biontech Covid-19 Vac cine 2nd dose Unknown 12/20/2020 Administered Pfizer Biontech Covid-19 Vac cine 2nd dose Unknown 01/10/2021 Administered Pfizer Biontech Covid-19 Vac cine 2nd dose Unknown 08/18/2021 Administered Td (adult) preservative free Unknown 07/27/2014 Adminis tered Social History Tobacco Use: Social History Observation [...] Intake: Occasional 06/26/2020,Tobacco Years: Never smoker 06/26/2020 Problems Problem Type SNOMED Code ICD Code Onset Dates Problem Status W/U Status Risk Notes Problem Mild recurrent major depression (73540105) Major depressive disorder, recurrent, mild (F33.0) 07/29/19 Active confirmed Problem Generalized anxiety disorder (83409276) Generalized anxiety disorder (F41.1) 07/29/19 Active confirmed Problem Insomnia disorder related to another mental disorder (75776295) Insomnia due to other mental disorder (F51.05) 07/29/19 Active confirmed Problem Attention deficit hyperactivity disorder, combined type (27785171) Attention-deficit hyperactivity disorder, combined type (F90.2) 07/29/19 Active confirmed Vital Signs Heart Rate 67 /min 01/22/2025 Height-cm 162.56 cm 01/22/2025 Blood pressure diastolic 77 mm Hg 01/22/2025 Weight-kg 79.38 kg 01/22/2025 Height 64.00 in 01/22/2025 Blood pressure systolic 117 mm Hg 01/22/2025 Weight 175 lbs 01/22/2025 BMI 30.04 kg/m2 01/22/2025 Encounters [facility]counter [facility] [address] [address] 01/22/2025 Yovani Wheeler Generalized anxiety disorder F41.1 ; Attention-deficit hyperactivity disorder, combined type F90.2 ; Major depressive disorder, recurrent, mild F33.0 and Insomnia due to other mental disorder F51.05 [facility], [facility] [address] [place] [address] 07/24/2024 Yovani Wheeler Encounter for screen ing for depression Z13.31 ; Encounter for screening for cardiovascular disorders Z13.6 ; Generalized anxiety disorder F41.1 ; Attention-deficit hyperactivity disorder, combined type F90.2 ; Major depressive disorder, recurrent, mild F33.0 and Insomnia due to other mental disorder F51.05 [facility], [facility] [address] [place] [address] 10/30/2024 Yovani Wheeler Generalized anxiety disorder F41.1 ; Attention-deficit hyperactivity disorder, combined type F90.2 ; Major depressive disorder, recurrent, mild F33.0 and Insomnia due to other mental disorder F51.05 [facility], [facility] [address] [place] [address] 02/10/2024 Yovani Wheeler Attention-deficit hyperactivity disorder, combined type F90.2 [facility], [facility] [address] [place] [address] 03/09/2024 Yovani Wheeler Attention-deficit hyperactivity disorder, combined type F90.2 [facility], [facility] [address] [place] [address] 03/09/2024 Yovani Wheeler Attention-deficit hyperactivity disorder, combined type F90.2 [facility], [facility] [address] [place] [address] 05/16/2024 Yovani Wheeler Attention-deficit hyperactivity disorder, combined type F90.2 [facility], [facility] [address] [place] [address] 06/20/2024 Yovani Wheeler [facility], [facility] [address] [place] [address] 06/20/2024 Yovani Wheeler [facility], [facility] [address] [place] [address] 07/02/2024 Yovani Wheeler Attention-deficit hyperactivity disorder, combined type F90.2 [facility], [facility] [address] [place] [address] 08/22/2024 Yovani Wheeler Major depressive disorder, recurrent, mild F33.0 [facility], [facility] [address] [place] [address] 08/22/2024 Yovani Wheeler Generalized anxiety disorder F41.1 [facility] [address] [place] [address] 09/04/2024 Yovani Wheeler Attention-deficit hyperactivity disorder, combined type F90.2 [facility], [facility] [address] [place] [address] 09/07/2024 Yovani Wheeler Attention-deficit hyperactivity disorder, combined type F90.2 [facility] [address] [place] [address] 09/07/2024 Yovani Wheeler Attention-deficit hyperactivity disorder, combined type F90.2 [facility] [address] [place] [address] 09/28/2024 Yovani Wheeler Major depressive disorder, recurrent, mild F33.0 and Generalized anxiety disorder F41.1 [facility] [address] [place] [address] 09/30/2024 Yovani Wheeler Major depressive disorder, recurrent, mild F33.0 and Generalized anxiety disorder F41.1 [facility] [address] [place] [address] 10/05/2024 Yovani Wheeler Attention-deficit hyperactivity disorder, combined type F90.2 [facility], [facility] [address] [place] [address] 12/11/2024 Yovani Wheeler Attention-deficit hyperactivity disorder, combined type F90.2 [facility], [facility] [address] [place] [address] 01/09/2025 Yovani Wheeler Attention-deficit hyperactivity disorder, combined type F90.2 Assessments Encounter Date Diagnosis (ICD Code) Assessment Notes Treatment Notes Treatment Clinical Notes Section Notes 02/10/2024 Attention-defici t hyperactivity disorder, combined type (ICD-10 - F90.2) 03/09/2024 Attention-defici t hyperactivity disorder, combined type (ICD-10 - F90.2) 03/09/2024 Attention-defici t hyperactivity disorder, combined type (ICD-10 - F90.2) 05/16/2024 Attention-defici t hyperactivity disorder, combined type (ICD-10 - F90.2) 07/02/2024 Attention-defici t hyperactivity disorder, combined type (ICD-10 - F90.2) 07/24/2024 Encounter for screening for depression (ICD-10 - Z13.31) 08/22/2024 Major depressive disorder, recurrent, mild (ICD-10 - F33.0) 08/22/2024 Generalized anxiety disorder (ICD-10 - F41.1) 09/04/2024 Attention-defici t hyperactivity disorder, combined type (ICD-10 - F90.2) 09/07/2024 Attention-defici t hyperactivity disorder, combined type (ICD-10 - F90.2) 09/07/2024 Attention-defici t hyperactivity disorder, combined type (ICD-10 - F90.2) 09/28/2024 Major depressive disorder, recurrent, mild (ICD-10 - F33.0) 09/30/2024 Major depressive disorder, recurrent, mild (ICD-10 - F33.0) 10/05/2024 Attention-defici t hyperactivity disorder, combined type (ICD-10 - F90.2) 10/30/2024 Generalized anxiety disorder (ICD-10 - F41.1) Imported from [employer]: On 06/18/2024, the patient had a hospital encounter with Dr. Jose Herrera at [facility] for unspecified chest pain. This was followed by an orders-only visit with Heaven Benavidez on 06/19/2024. A telephone consultation with Nita Marquez occurred on 06/20/2024, and a post-discharg e follow-up call was made by Yesenia Herrera on 06/22/2024. An office visit on 07/21/2024 with Reyna Figueroa NP addressed unspecified chest pain, leading to a hospital encounter and surgery on 07/24/[address] Kiara Beltrán, accompanied by an anesthesia event with Dr. Fermin Martinez. A telephone consultation on 07/27/2024 with James Miller [place] was for a screening colonoscopy, followed by [...] a hospital encounter for a screening mammogram. 12/11/2024 Attention-defici t hyperactivity disorder, combined type (ICD-10 - F90.2) 01/09/2025 Attention-defici t hyperactivity disorder, combined type (ICD-10 - F90.2) 01/22/2025 Generalized anxiety disorder (ICD-10 - F41.1) Imported from [employer]: On 06/18/2024, the patient had a hospital encounter with Dr. Jose Herrera at [facility] for unspecified chest pain. This was followed by an orders-only visit with Heaven Benavidez on 06/19/2024. A telephone consultation with Nita Marquez occurred on 06/20/2024, and a post-discharg e follow-up call was made by Yesenia Herrera [...] a hospital encounter for a screening mammogram. 07/24/2024 Encounter for screening for cardiovascular disorders (ICD-10 - Z13.6) 10/30/2024 Attention-defici t hyperactivity disorder, combined type (ICD-10 - F90.2) Imported from [employer]: On 06/18/2024, the patient had a hospital encounter with Dr. Jose Herrera at [facility] for unspecified chest pain. This was followed by an orders-only visit with Heaven Benavidez on 06/19/2024. A telephone consultation with Nita Marquez occurred on 06/20/2024, and a post-discharg e follow-up call was made by Yesenia Herrera [...] a hospital encounter for a screening mammogram. 09/30/2024 Generalized anxiety disorder (ICD-10 - F41.1) 09/28/2024 Generalized anxiety disorder (ICD-10 - F41.1) 01/22/2025 Attention-defici t hyperactivity disorder, combined type (ICD-10 - F90.2) Imported from [employer]: On 06/18/2024, the patient had a hospital encounter with Dr. Jose Herrera at [facility] for unspecified chest pain. This was followed by an orders-only visit with Heaven Benavidez on 06/19/2024. A telephone consultation with Nita Marquez occurred on 06/20/2024, and a post-discharg e follow-up call was made by Yesenia Herrera [...] a hospital encounter for a screening mammogram. 10/30/2024 Major depressive disorder, recurrent, mild (ICD-10 - F33.0) Imported from [employer]: On 06/18/2024, the patient had a hospital encounter with Dr. Jose Herrera at [facility] for unspecified chest pain. This was followed by an orders-only visit with Heaven Benavidez on 06/19/2024. A telephone consultation with Nita Marquez occurred on 06/20/2024, and a post-discharg e follow-up call was made by Yesenia Herrera [...] a hospital encounter for a screening mammogram. 07/24/2024 Generalized anxiety disorder (ICD-10 - F41.1) 01/22/2025 Major depressive disorder, recurrent, mild (ICD-10 - F33.0) Imported from [employer]: On 06/18/2024, the patient had a hospital encounter with Dr. Jose Herrera at [facility] for unspecified chest pain. This was followed by an orders-only visit with Heaven Benavidez on 06/19/2024. A telephone consultation with Nita Marquez occurred on 06/20/2024, and a post-discharg e follow-up call was made by Yesenia Herrera on 06/22/2024. An office visit on 07/21/2024 with Reyna Figueroa NP addressed unspecified chest pain, leading to a hospital encounter and surgery on 07/24/[address] Kiara Beltrán, accompanied by an anesthesia event with Dr. Fermin Mratinez. A telephone consultation on 07/27/2024 with James [...] mental disorder (ICD-10 - F51.05) Imported from [employer]: On 06/18/2024, the patient had a hospital encounter with Dr. Jose Herrera at [facility] for unspecified chest pain. This was followed by an orders-only visit with Heaven Benavidez on 06/19/2024. A telephone consultation with Nita Marquez occurred on 06/20/2024, and a post-discharg e follow-up call was made by Yesenia Herrera [...] a hospital encounter for a screening mammogram. 10/30/2024 Insomnia due to other mental disorder (ICD-10 - F51.05) Imported from [employer]: On 06/18/2024, the patient had a hospital encounter with Dr. Jose Herrera at [facility] for unspecified chest pain. This was followed by an orders-only visit with Heaven Benavidez on 06/19/2024. A telephone consultation with Nita Marquez occurred on 06/20/2024, and a post-discharg e follow-up call was made by Yesenia Herrera [...] a hospital encounter for a screening mammogram. 07/24/2024 Attention-defici t hyperactivity disorder, combined type (ICD-10 - F90.2) 07/24/2024 Major depressive disorder, recurrent, mild (ICD-10 - F33.0) 07/24/2024 Insomnia due to other mental disorder (ICD-10 - F51.05) 07/24/2024 Other Attention Deficit Hyperactivity Disorder (ADHD) Assessment: Patient continues to be managed on Concerta 36 mg daily for ADHD symptoms. No specific complaints or concerns related to ADHD symptoms were reported during this visit. The patient confirms adherence to the prescribed medication regimen. Plan: - Continue Concerta 36 mg PO daily - Obtain urine drug screen for methylphenidate (patient to provide sample on August 03) Depression Assessment: Patient denies current depressive symptoms. She reports ongoing work and family-related issues but does not characterize these as depression, stating she is trying to figure out right choices and navigate the situation. Patient is currently maintained on sertraline 100 mg daily and bupropion XL 150 mg daily. Plan: - Continue sertraline 100 mg PO daily - Continue bupropion XL 150 mg PO daily Insomnia secondary to Obstructive Sleep Apnea Assessment: Patient reports ongoing sleep difficulties related to untreated obstructive sleep apnea. She acknowledges non-compliance with CPAP therapy due to discomfort. Patient has recently discussed alternative treatment options, including Inspire therapy, with her billboard poster helper but expresses concerns about the permanence of the implant. Plan: - Encourage continued discussion with color stripper and billboard poster helper regarding sleep apnea management options - Consider referral to sleep specialist for alternative CPAP mask options or other treatment modalities the note is transcribed using speech recognition software. It is a reflection of a visit with the patient. It might have some inaccuracy, including medication names and transcribing errors, though efforts have been made to correct them. 10/30/2024 Other Soha Bell, female patient with history of depression, anxiety, ADHD, and gastrointestinal issues, presents for medication management and follow-up. Depression and Anxiety Assessment: Patient reports doing really good with her depression and anxiety. She acknowledges being a worrier but is making efforts to be more aware of her thought patterns. No current suicidal ideation, but expresses worry about something happening to her family. Patient is engaged in counseling every other week with Klaee Roblero. Plan: - Continue sertraline - Continue bupropion XL - Continue counseling sessions every other week with Kalee Roblero Attention Deficit Hyperactivity Disorder (ADHD) Assessment: Patient is currently on methylphenidate for ADHD management. She reports that the medication works okay. However, she is experiencing significant sweating, particularly facial sweating, which could be a side effect of the stimulant medication. Plan: - Continue methylphenidate - Monitor for side effects, particularly excessive sweating Medication Side Effects Assessment: Patient is experiencing excessive sweating, particularly facial sweating. This side effect could be attributed to multiple medications, including sertraline, bupropion, and methylphenidate. Plan: - Monitor sweating side effect - Discuss potential medication adjustments if side effects become intolerable Imported from [employer]: On 06/18/2024, the patient had a hospital encounter with Dr. Jose Herrera at [facility] for unspecified chest pain. This was followed by an orders-only visit with Heaven Benavidez on 06/19/2024. A telephone consultation with Nita Marquez occurred on 06/20/2024, and a post-discharg e follow-up call was made by Yesenia Herrera [...] for a screening mammogram. Plan Of Treatment Next Appt Details Provider Name:Yovani waters, 02/21/2025 09:00:00 AM, [address], [facility] [address], [place], [address], Insurance Providers Payer Name Payer Address Payer Phone Subscriber Number Group Number Insured Name Patient Relationship to Insured Coverage Start Date Coverage End Date [facility] [address] [place] [address] [id number] SOHA BELL Self - patient is the insured Medical (General) History Medical History History ICD Code Problems: Attention deficit hyperactivit y disorder, combined type Generalized anxiety disorder Insomnia disorder related to another men penelope disorder Mild recurrent major depression 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
--- OUTSIDE RECORDS SUMMARY | 2025-02-01 17:17 | XMS_ITS | Clinical Summary ---
Author Organization [facility] Address [address] [place] [address] Care Team Providers Care Seismograph Operator Name Role Phone Jose De La Paz MD Primary Care Provider Atif Tsai MD Unavailable [phone] Kiara Beltrán MD Unavailable [phone] Allergies Active Allergy Reactions Criticality Noted Date Comments Adhesive Tape-Silicones Other (See comments) Low Rash with swelling Latex Rash Medium 07/15/2021 Other Other (See comments) Low 07/15/2021 Seasonal Allergies- itchy eyes, runny nose, sneezing Medications cetirizine (ZyrTEC) 10 mg tablet Take 1 tablet (10 mg total) by mouth nightly Active multivit,calc,mins /iron/folic (WOMEN'S ONE DAILY ORAL) Take 1 tablet by mouth nightly Active LAMOTRIGINE ORAL Take 1 tablet by mouth daily 2 Active sertraline (ZOLOFT) 100 mg tablet Take 1 tablet (100 mg total) by mouth daily Active methylphenidate ER (CONCERTA) 36 mg CR tabletIndications: Attention-Deficit Hyperactivity Disorder Take 1 tablet (36 mg total) by mouth every morning Active buPROPion XL (WELLBUTRIN XL) 150 mg 24 hr tablet Take 1 tablet (150 mg total) by mouth daily Active pantoprazole DR (PROTONIX) 40 mg EC tablet Take 1 tablet (40 mg total) by mouth daily 30 tablet 2 5 Active cholestyramine (QUESTRAN) 4 gram powder Take 1 packet (4 g total) by mouth daily Dissolve in 8 oz of liquid and drink before a meal 30 packet 11 5 07/25/19 26 Active Active Problems Problem Noted Date Diagnosed Date Encounter for screening colonoscopy 07/27/2024 Chest pain, unspecified type 06/18/2024 Abnormal mammogram 08/01/2021 Overview (08/01/2021): Added automatically from request for surgery [id number] Immunizations Immunization Administration Dates Next Due TD Preservative Free 07/27/2014 Surgical History Surgery Date Site/Laterality Comments LOOP ELECTROSURGICAL EXCISIO N PROCEDURE Cervical Loop Electrosurgical Excision (LEEP) - (Added by TW Conv) CHOLECYSTECTOMY BREAST BIOPSY 07/14/2021 Right COLONOSCOPY 09/14/2024 first Medical History Medical History Date Comments Personal history of other me ntal and behavioral disorders History of anxiety - (Added by TW Conv) Personal history of other di seases of the circulatory system History of hypertension - (A dded by TW Conv) Overweight Depression Abnormal mammogram Breast mass, right Motion sickness Sleep apnea GERD (gastroesophageal reflux disease) Diarrhea Frequent urination Family History Medical History Relation Name Comments Diabetes Father Family history of diabetes mellitus (DM) - (Added by TW Conv) Hypertension Father Family history of hypertension - (Added by TW Conv) Colon cancer Maternal Grandfather Prostate cancer Maternal Grandfather Vaginal cancer Maternal Grandmother Bleeding Disorder Mother Family his tory of bleeding disorder - (Added by TW Conv) Endometrial cancer Mother Endometriosis Mother Stroke Other Family history of cerebrovascular accident - Relation: Grandmother (Added by TW Conv) Endometriosis Sister Vaginal cancer Sister Breast cancer Neg Hx Ovarian cancer Neg Hx Pancreatic cancer Neg Hx Thyroid cancer Neg Hx Relation Name Status Comments Father Maternal Grandfather Maternal Grandmother Mother Other Sister Social History Tobacco Use Types Packs/Day Years [...] on file Legal Sex Female 4:22 AM [employer] 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 Gender Identity Not on file Sexual Orientation Not on file Obstetrics History Para Term AB IAB SAB Ectopic Multiple Livin g Live Births 2 2 2 Date Outcome GA Total Labor Labor/2nd/3rd Weight Sex Type Anes PTL Connie A1 A5 Name Clin Term Term Last Filed Vital Signs Vital Sign Reading Time Taken Comments Blood Pressure 114/78 09/14/2024 2:17 PM CDT Pulse 63 09/14/2024 2:17 PM CDT Temperature 36.4 C (97.5 F) 09/14/2024 2:17 PM CDT Respiratory Rate 16 09/14/2024 2:17 PM CDT Oxygen Saturation 97% 09/14/2024 2:17 PM CDT Inhaled Oxygen Concentration - - Weight 81.2 kg (179 lb 0.2 oz) 10/02/2024 7:54 A M CDT Height 162.6 cm (5' 4) 10/02/2024 7:54 AM CDT Body Mass Index 30.73 10/02/2024 7:54 AM CDT Plan of Treatment Health Maintenance Due Date Last Done Comments Cervical Cancer Screening 1975 Hepatitis C Screening 1975 Hepatitis B Screening 01/28/1994 Regular Well Visit/Exam 18-64 01/28/1994 Pneumococcal vaccine <65 (1 of 2 - PCV) 01/28/1995 DTaP/Tdap/Td Vaccine (1 - Tdap) 07/28/2014 5 Depression Screening 08/15/2018 08/15/2017, 08/16/19 18 Covid-19 Vaccine ( - season) 2024 08/18/2021, 01/10/2021, 12/20/2020 Influenza Vaccine (#1) 2024 Breast Cancer Screening-Mammogram 10/02/2025 10/02/2024, 05/19/2023, 05/05/2022 Colon Cancer Screening-Colonoscopy 09/14/20342024 Medical Devices Implanted Type Area Oil Distributor Tender Device Identifier Shelf Expiration Date Model / Serial / Lot Clothing [employer] Assistant [employer] Solomons 20ga 5cm Reposition J Curve Wire Centimeter Rex Stabilizer [id number] - [id number] Implanted:Qty: 1 on 08/20/2021 at [facility] Wire Clothing [employer] [id number] 04/03/2026 [id number] / / [id number] Bard Per[employer] [id number] Ultraclip Bard 17ga 10cm 2 Trigger Permanent Ultrasound - [id number] Implanted:Qty: 1 on 07/14/2021 at [facility] [employer] [id number] 01/24/2024 [id number] / / Procedures Procedure Name Priority Date/Time Associated Diagnosis Comments SCREENING MAMMOGRAM BILATERAL W GOKUL Schedule Routine, Read Routine (OP Routine) 10/02/2024 8:14 AM CDT Screening mammogram, encounter for COLONOSCOPY 09/14/2024 12:53 PM CDT from Last 3 Months or Most Recently Relevant to Health Maintenance Results * Screening Mammogram Bilateral W Gokul (10/02/2024 8:14 AM CDT) Anatomical Region Laterality Modality Breast Bilateral Mammography Impressions 10/02/2024 9:40 AM CDT Bilateral No evidence of malignancy in either breast. OVERALL BI-RADS FINAL ASSESSMENT: 1 - Negative RECOMMENDATION: Recommend bilateral annual screening mammography. Narrative 10/02/2024 9:40 AM CDT EXAMINATION: Screening Mammogram Bilateral W Gokul: 10/02/2024 COMPARISON: Relevent prior studies available at the time of interpretation were reviewed, including the most recent mammogram on: 05/19/2023. TECHNIQUE: Mammography was performed with 2D and digital breast tomosynthesis (DBT) images. CAD was utilized. BREAST PARENCHYMAL COMPOSITION: The breasts are heterogeneously dense, which may obscure small masses. FINDINGS: Bilateral There is no suspicious mass, calcification, or architectural distortion in either breast. us Self Screening Mammogram IMG MAMMO PROCEDURES Fi nal Result * Colonoscopy (09/14/2024 12:53 PM CDT) Anatomical Region Laterality Modality Other Narrative Procedure Note Kiara Beltrán MD - 09/14/2024 12:53 PM CDT [facility] Patient Name: Soha Bell Procedure Date: 09/14/2024 12:53 PM Date of : 1975 Admit Type: Outpatient Age: 49 Gender: Female Attending MD: Kiara Beltrán M.D. Room: [facility] ENDOSCOPY ROOM 1 Note Status: Finalized Patient Profile: This is a 49 year old female. Grandparent had colon cancer. Procedure: Colonoscopy Indications: Screening for colorectal malignant neoplasm, Thisis the patient's first colonoscopy Referring MD: Jose De La Paz M.D. Providers: Kiara Beltrán M.D. Impression: - One 3 mm polyp in the descending colon, removedwith a jumbo cold forceps. Resected and retrieved. - Internal hemorrhoids. Recommendation: - Await pathology results. - Repeat colonoscopy in 5 years for surveillance. Medicines: Monitored Anesthesia Care Complications: No immediate complications. Estimated Blood Loss: Estimated blood loss: none. Procedure: Pre-Anesthesia Assessment: - Prior to the procedure, a History and Physicalwas performed, and patient medications and allergieswere reviewed. The patient's tolerance of previous anesthesia was also reviewed. The risks andbenefits of the procedure and the sedation options and risks were discussed with the patient. All questions were answered, and informed consent was obtained. Prior Anticoagulants: The patient has taken noanticoagulant or antiplatelet agents. ASA Grade Assessment: Per anesthesia note and evaluation. After reviewing the risks and benefits, the patient was deemed in satisfactory condition to undergo the procedure. The benefits, risks and alternatives of theprocedure and sedation were discussed and informed consentwas obtained. All questions were answered. Please referto the signed informed consent document in the medical record. The bowel preparation used was Miralax and bisacodyl tablets via split dose instruction. The scope was passed under direct vision. The Pediatric Colonoscope [id number] was introducedthrough the anus and advanced to the the cecum, identifiedby appendiceal orifice and ileocecal valve. Thequality of the bowel preparation was adequate. Bowel prepwas administered using a split dose. Findings: The perianal and digital rectal examinations were normal. The cecum appeared normal. The rectum, sigmoid colon, transverse colon and ascending colonappeared normal. A 3 mm polyp was found in the descending colon. The polyp was semi-sessile. The polyp was removed with a jumbo cold forceps.Resection and retrieval were complete. Internal hemorrhoids were found during retroflexion. The hemorrhoids were small. Electronically signed by Kiara Beltrán M.D. Kiara Beltrán M.D. 09/14/2024 1:47:39 PM Number of Addenda: 0 Note Initiated On: 09/14/2024 12:53 PM Procedure Code(s): --- Professional --- 95469, Colonoscopy, flexible; with biopsy, single or multiple Diagnosis Code(s): --- Professional --- Z12.11, Encounter for screening for malignant neoplasm of colon K64.8, Other hemorrhoids D12.4, Benign neoplasm of descending colon CPT copyright 2020 [employer]. All rights reserved. The codes documented in this report are preliminary and upon security sales consultant reviewmay be revised to meet current compliance requirements. Recognized by the [employer] for promoting quality in endoscopy Kiara Beltrán MD ENDOSCOPY PROCEDURES Final Result from Last 3 Months or Most Recently Relevant to Health Maintenance Insurance [employer] [place] [employer] CHOICE [employer] Advance Directives For more information, please contact: [phone] * Full Code (Latest Code Status on File) Date Activated Date Inactivated Comments 09/14/2024 12:34 PM 09/14/2024 6:49 PM * Full Code Date Activated Date Inactivated Comments 07/24/2024 12:37 PM 07/24/2024 7:39 PM * Full Code Date Activated Date Inactivated Comments 07/24/2024 12:37 PM 07/24/2024 12:37 PM * Full Code Date Activated Date Inactivated Comments 06/19/2024 5:56 PM 06/19/2024 10:04 PM * Full Code Date Activated Date Inactivated Comments 06/18/2024 7:10 PM 06/19/2024 5:56 PM Care Teams Seismograph Operator Relationship Specialty [place] [id number] [address] PCP - General Internal Medicine 05/19/21 Atif Tsai MD [address] [place] [address] Referring Physician Obstetrics and Gynecology 05/29/21 Kiara Beltrán MD [address] [place] [address] [address] Consulting Physician Gastroenterology 06/19/24
--- OUTSIDE RECORDS SUMMARY | 2025-02-01 17:17 | XMS_ITS | Data Portability ---
Author Organization [facility] [employer] [facility], [facility] Address [place] [address] Assessment No assessment recorded. Plan of Treatment Reminders Order Date Submit Date Provider Last Modified By Organization Details Last Modified Time Details Appointments None recorded. Lab rapid strep group A, throat 2022 023 [facility] , [address] [place], [address], 3 19:42:45 rapid SARS CoV 2 Ag, QL IA, respiratory specimen 2022 023 [facility] , [address] [place], [address], 3 19:42:45 rapid flu (A+B) 2022 023 [facility] , [address] [place], [address], 3 19:42:45 Referral None recorded. Procedures None recorded. Surgeries None recorded. Imaging None recorded. Medication Orders amoxicillin 875 mg-potasscaiou m clavulanate 125 mg tablet 2022 023 [id number], [address] [facility] [place], [address], 3 19:42:48 fluconazole 150 mg tablet 2022 023 [id number], [address] [facility] [place], [address], 19:42:48 Patient TargetsNo targets recorded. Patient Instructions Encounter Date Encounter Id Patient Instructions Last Modified By Organization Details Last Modified Time 04/11/2022 [id number] ear infection (otitis media): care instructions Not available 04/11/2022 19:45:27 coronavirus (covid-19): care instructions Not available 04/11/2022 19:42:45 If you test positive for COVID-19, stay home for at least 5 days and isolate from others in your home. You are likely most infectious during these first 5 days. Wear a high-quality mask if you must be around others at home and in public. Do not go places where you are unable to wear a mask. For travel guidance, see CDC s Travel webpage. Do not travel. Stay home and separate from others as much as possible. Use a separate bathroom, if possible. Take steps to improve ventilation at home, if possible. Don t share personal household items, like cups, towels, and utensils. Monitor your symptoms. If you have an emergency warning sign (like trouble breathing), seek emergency medical care immediately. If you had symptoms and: Your symptoms are improving You may end isolation after day 5 if: You are fever-free for 24 hours (without the use of fever-reducing medication). Your symptoms are not improving Continue to isolate until: You are fever-free for 24 hours (without the use of fever-reducing medication). Your symptoms are improving. Regardless of when you end isolation Until at least day 11: Avoid being around people who are more likely to get very sick from COVID-19. Remember to wear a high-quality mask when indoors around others at home and in public. Do not go places where you are unable to wear a mask until you are able to discontinue masking (see below). For travel guidance, see CDC s Travel webpage. ER with worsening/severe symptoms. Not available 04/11/2022 19:43:05 discussed paxlovid and advised patient to contact pcp to discuss further but she declined medication at this time. Not available 04/11/2022 19:43:27 Reason for Referral None Reported. Results Created Date Observation Date Name Description Value Unit Range Abnormal Flag Note LastModifiedBy Organization Detail LastModifiedTime 04/11/19 23 04/11/2022 rapid strep group A, throa t Unknown Analyte Normal = Negati ve Not Available [facility] [address] [place], [address], 04/11/2022 18:49:52 04/11/19 23 04/11/2022 rapid strep group A, throa t Unknown Analyte negati ve Not Available [facility] [address] [place], [address], 04/11/2022 18:49:52 04/11/19 23 04/11/2022 rapid flu (A+B) Unknown Analyte Normal = Negati ve Not Available [facility] [address] [place], [address], 04/11/2022 18:50:19 04/11/19 23 04/11/2022 rapid flu (A+B) Unknown Analyte Normal = Negati ve Not Available [facility] [address] [place], [address], 04/11/2022 18:50:19 04/11/19 23 04/11/2022 rapid flu (A+B) Unknown Analyte negati ve Not Available [facility] [address] [place], [address], 04/11/2022 18:50:19 04/11/19 23 04/11/2022 rapid flu (A+B) Unknown Analyte negati ve Not Available [facility] [address] [place], [address], 04/11/2022 18:50:19 04/11/19 23 04/11/2022 rapid SARS CoV 2 Ag, QL IA, respi rator y speci men Unknown Analyte Normal =Negat phillip Not Available [facility] [address] [facility], [place], [address], 04/11/2022 18:50:08 04/11/19 23 04/11/2022 rapid SARS CoV 2 Ag, QL IA, respi rator y speci men Unknown Analyte positi ve Not Available [facility] [address], [place], [address], 04/11/2022 18:50:08 Result Notes None recorded. Problems Name Problem SNOMED Code Status Onset Date Resolution Date Notes Provider Name and Address Organization Details Recorded Time Depressive disorder 51248127 Active 023 Valery adkins PA - [facility] 3 18:55:07 Anxiety 36042678 Active 023 Valery adkins PA - [facility] 3 18:55:12 Problem Notes None recorded. Procedures Surgical History Date Name Laterality Status Provider Name and Address Organization Details Recorded Time lumpectomy of breast completed Valery Badillo PA - [facility] 04/11/2022 18:55:49 procedure on gallbladder completed Valery Badillo PA - [facility] 04/11/2022 18:56:08 Imaging Results None recorded. Procedure Notes None recorded. Medical Equipment None Reported. Allergies No known drug allergies Medications Name Sig Start Date Stop Date Status Note LastModified by Organization Details LastModified Time fluconazole 150 mg tablet Take 1 tablet by oral route for 2 days. 2022 active Not Available Not Available Not Avai lable amoxicillin 875 mg-potassium clavulanate 125 mg tablet Take 1 tablet every 12 hours by oral route for 10 days. 2022 active Not Available Not Available Not Avai lable sertraline active Not Available Not Av ailable Not Available lamotrigine active Not Available Not A vailable Not Available methylphenidate active Not Available N ot Available Not Available Vitals Date Recorded Body height Body mass index (BMI) Body weight Oxygen saturation Oxygen saturation in Arterial blood by Pulse oximetry Pain severity - 0-10 verbal numeric rating [Score] - Reported Heart rate Respiratory rate Body temperature Systolic And Diastolic Provider Name and Address Organization Details Last Updated DateTime 162.56 cm 33.8 kg/m2 51562.7 g 98 % 98 % 0 71 /min 16 /min 97.9 [degF] 124/81 mm[Hg] Valery FERMIN - [facility] 18:51:03 Social History Question Answer Notes LastModified by eJamming Details LastModified Time Tobacco Smoking Status Never Smoker [facility] Wallace [facility] 04/11/2022 18:55:27 What Is The Highest Grade Or Level Of School You Have Completed Or The Highest Degree You Have Received? [id number] Information not available 04/11/2022 What Is Your Water Source? City [email or web address] Information not available 04/11/2022 What Is Your Heat Source? Electric [email or web address] Information not available 04/11/2022 Have You Had Direct Contact, Or Contact During Intimacy, With Monkeypox Rash, Scabs, Or Body Fluids From A Person With Monkeypox? No [email or web address] Information not available 04/11/2022 What Is Your Relationship Status? Unknown [email or web address] Information not available 04/11/2022 Have You Recently Traveled Abroad? No [email or web address] Information not available 04/11/2022 Are You Currently In School? No [email or web address] Information not available 04/11/2022 Sex: Unknown Functional Status Question Answer Note LastModified by Organizat ion Details LastModified Time Do you use any illicit or recreational drugs? No [email or web address] Information not available 04/11/2022 Do you or have you ever used any other forms of tobacco or nicotine? No [email or web address] Information not available 04/11/2022 What is your level of alcohol consumption? Occasional [email or web address] Information not available 04/11/2022 Are you currently employed? No [email or web address] Information not available 04/11/2022 Mental Status None recorded. Family History Relationship Description Onset Age of this Age Resolved Age Notes LastModified by Organization Details LastModified Time Father No current problems or disability Not available 0 04/11/2022 18:55:14 Mother No current problems or disability [email or web address] Not available 0 04/11/2022 18:55:14 Medical History No medical history recorded. Gynecological HistoryNo gynecological history recorded. Obstetrics History GPAL:G 0 P 0 0 0 0 Past Encounters Encounter ID Performer Location Encounter Start Date Encounter Closed Date Diagnosis/Indication Diagnosis SNOMED-CT Code Diagnosis ICD10 Code Diagnosis IMO Codes Diagnosis Note [id number] [facility] [address] [place] [address] 04/11/2022 18:11:22 04/11/2022 19:45:12 Acute right otitis media 506448536 H66.91 COVID-19 103755378 U07.1 Health Concerns Section Related Observation LastModified by Organization Detai ls LastModified Time None Recorded Concern Status LastModified by Organization Details LastModified Time None Recorded Advance Directives Directive None Recorded Payers Insurance Date Sequence Insurance Name Policy Number Policy Michel Covered Member ID Michel Member ID Guarantor Name 04/11/2022 1 [place] Soha Bell [id number] 30 [id number] Soha Bell Notes Date Note Type Note Provider Name and Address Organization Details Recorded Time 04/11/2022 text/html Sore throatRepor jeovanny by PatientSore ThroatFor source of patient information, patient reportsinformation obtained from patientandpatient arrived at urgent care ambulatory. For location, patient reportsthroat. For severity, patient reportsmild. For onset/timing, patient reports4 days. For associated symptoms, patient reportsno cough,no sputum production,no shortness of breath,no wheezing,no sinus pain,no vomiting,no nausea, andno hoarseness.symptoms mild and improving. main complaint is right ear pain. concerned as she is going on a flight this wed.ROS as noted in the HPI ZANDER AMADOR [address] [place], [address], PA - [facility] 04/12/2022 08:07:35 OBGyn Episode No OBEpisode recorded.
== END 2025-02-01 09:10 | disposition home or self-care (01) ==
PROVIDERS: Emergency Provider Nurse Practitioner; PCP Internal Medicine
DX: J01.90 Acute sinusitis, unspecified (principal); I10 Essential (primary) hypertension
CPT/HCPCS: 87081; 87880; 99213; G0463